=== PATIENT | male | born 2000 | race African-American/Black ===

== ENCOUNTER 2023-11-10 13:59 | Emergency (ER) | payer OTHER ==
[2023-11-10 14:26] VITALS: RESP 18; TEMP 97.4
--- NOTE | 2023-11-10 14:28 | ED ---
General Adult HPI - General Chief complaint: Abdominal Pain Stated complaint: Abd pain, blood in stool Time Seen by Provider: 11/10/23 14:10 Source: patient Mode of arrival: ambulatory Limitations: no limitations - History of Present Illness Initial comments: Dictation was produced using scroll kit dictation software. please excuse any grammatical, word or spelling errors. Chief Complaint: 23-year-old male with history of GI bleed presents to the emergency department for bright red blood per rectum History of Present Illness: Patient 23-year-old male presents emergency department for bright red blood per rectum. This morning he had episode of bright red blood in the toilet when he had a bowel movement. Patient states that few years ago he has has had a colonoscopy. States that colonoscopy was normal. He was told that perhaps may be his GI bleed could be secondary to hemorrhoids. Patient denies any rectal pain. Does complain of some very vague lower abdominal cramping. Denies any lightheadedness. Does not take any anticoagulation medications. Patient has no other medical problems. He has an appointment coming up next month for reevaluation for GI bleed. Contemplated calling GI specialist however given that it is a weekend he was not sure what to do. The ROS documented in this emergency department record has been reviewed and confirmed by me. Those systems with pertinent positive or negative responses have been documented in the HPI. All other systems are other negative and/or noncontributory. - Related Data Allergies Allergy/AdvReac Type Severity Reaction Status Date / Time ibuprofen [From Motrin] Allergy Anaphylaxis Verified 11/10/23 14:06 Review of Systems ROS Statement: Those systems with pertinent positive or pertinent negative responses have been documented in the HPI. ROS Other: All systems not noted in ROS Statement are negative. Past Medical History Past Medical History: No Reported History History of Any Multi-Drug Resistant Organisms: None Reported Additional Past Surgical History / Comment(s): colonoscopy. Past Psychological History: Anxiety, Depression Smoking Status: Vaper Past Alcohol Use History: Occasional Past Drug Use History: Marijuana General Exam - General Exam Comments Initial Comments: PHYSICAL EXAM: General Impression: Alert and oriented x3, not in acute distress HEENT: Normocephalic atraumatic, extra-ocular movements intact, pupils equal and reactive to light bilaterally, mucous membranes moist. Cardiovascular: Heart regular rate and rhythm Chest: Able to complete full sentences, no retractions, no tachypnea Abdomen: abdomen soft, non-tender, non-distended, no organomegaly Musculoskeletal: Pulses present and equal in all extremities, no peripheral edema Motor: no focal deficits noted Neurological: CN II-XII grossly intact, no focal motor or sensory deficits noted Skin: Intact with no visualized rashes Psych: Normal affect and mood Rectal exam: No gross blood, no anal abnormalities Limitations: no limitations Course Vital Signs 11/10/23 14:03 Temperature 97.4 F L Pulse Rate 52 L Respiratory 18 Rate Blood Pressure 136/70 O2 Sat by Pulse 98 Oximetry Medical Decision Making - Medical Decision Making Was pt. sent in by a medical professional or institution (, PA, BOWLING PIN SETTERS INSTALLER, urgent care, hospital, or long term...) When possible be specific @ -No Did you speak to anyone other than the patient for history (EMS, parent, family, police, friend...)? What history was obtained from this source @ -No Did you review nursing and triage notes (agree or disagree)? Why? @ -I reviewed and agree with nursing and triage notes Were old charts reviewed (outside hosp., previous admission, EMS record, old EKG, old radiological studies, urgent care reports/EKG's, long term records)? Report findings @ -No old charts were reviewed Differential Diagnosis (chest pain, altered mental status, abdominal pain women, abdominal pain men, vaginal bleeding, musculoskeletal, weakness, fever, dyspnea, syncope, headache, dizziness, GI bleed, back pain, seizure, CVA, palpatations, mental health)? @ -Differential GI Bleed: Esophageal varices, aortoenteric fistula, Gayla-Lugo, gastritis, peptic ulcer disease, diverticulosis, inflammatory bowel disease, hemorrhoids, fissure, colitis, malignancy, Meckels diverticulum, this is not meant to be an all- inclusive list. EKG interpreted by me (3pts min.). @ -None done X-rays interpreted by me (1pt min.). @ -None done CT interpreted by me (1pt min.). @ -None done U/S interpreted by me (1pt. min.). @ -None done What testing was considered but not performed or refused? (CT, X-rays, U/S, labs)? Why? @ -None What meds were considered but not given or refused? Why? @ -None Did you discuss the management of the patient with other professionals (professionals i.e. , PA, BOWLING PIN SETTERS INSTALLER, lab, RT, psych nurse, high school social studies teacher, strategy intern, teacher, chief knowledge officer, major case detective)? Give summary @ -No Was smoking cessation discussed for >3mins.? @ -No Was critical care preformed (if so, how long)? @ -No Were there social determinants of health that impacted care today? How? (Homelessness, low income, unemployed, alcoholism, drug addiction, transportation, low edu. Level, literacy, decrease access to med. care, retirement, rehab)? @ -No Was there de-escalation of care discussed even if they declined (Discuss DNR or withdrawal of care, Hospice)? DNR status @ -No What co-morbidities impacted this encounter? (DM, HTN, Smoking, COPD, CAD, Cancer, CVA, ARF, Chemo, Hep., AIDS, mental health diagnosis, sleep apnea, morbid obesity)? @ -None Was patient admitted / discharged? Hospital course, mention meds given and route, prescriptions, significant lab abnormalities, going to OR and other pert inent info. @ -23-year-old male with history of prior blood per rectum presents to the emergency department for episode of red blood per rectum after having a bowel movement this morning. Patient stable on arrival. His abdomen is soft. He has very minimal tenderness to his lower quadrant. No concern for diverticulitis. He is well-appearing. Rest of physical examination is benign. Labs unre markable. Patient cleared for discharge. Return precautions discussed. Patient agreeable to follow-up with his usual GI specialist. Undiagnosed new problem with uncertain prognosis? @ -No Drug Therapy requiring intensive monitoring for toxicity (Heparin, Nitro, Insulin, Cardizem)? @ -No Were any procedures done? @ -No Diagnosis/symptom? Acute, or Chronic, or Acute on Chronic? Uncomplicated (without systemic symptoms) or Complicated (systemic symptoms)? @ -Bright red blood per rectum Side effects of treatment? @ -No Exacerbation, Progression, or Severe Exacerbation? @ -No Poses a threat to life or bodily function? How? (Chest pain, [place], [place], pneumonia, PE, COPD, DKA, ARF, appy, cholecystitis, CVA, Diverticulitis, Homicidal, Suicidal, threat to staff... and all critical care pts) @ -yes - Lab Data Result diagrams: 11/10/23 14:24 11/10/23 14:24 Lab Results 11/10/23 11/10/23 11/10/23 Range/Units 14:24 14:24 14:24 WBC 6.7 (3.8-10.6) k/uL RBC 5.43 (4.30-5.90) m/uL Hgb 16.5 (13.0-17.5) gm/dL Hct 50.2 (39.0-53.0) % MCV 92.4 (80.0-100.0) fL MCH 30.5 (25.0-35.0) pg MCHC 33.0 (31.0-37.0) g/dL RDW 12.8 (11.5-15.5) % Plt Count 370 (150-450) k/uL MPV 7.9 Neutrophils % 56 % Lymphocytes % 35 % Monocytes % 6 % Eosinophils % 1 % Basophils % 1 % Neutrophils # 3.7 (1.3-7.7) k/uL Lymphocytes # 2.3 (1.0-4.8) k/uL Monocytes # 0.4 (0-1.0) k/uL Eosinophils # 0.1 (0-0.7) k/uL Basophils # 0.0 (0-0.2) k/uL PT (10.0-12.5) sec INR (<1.2) APTT (22.0-30.0) sec Sodium 140 (137-145) mmol/L Potassium 5.1 (3.5-5.1) mmol/L Chloride 109 H (98-107) mmol/L Carbon Dioxide 22 (22-30) mmol/L Anion Gap 9 mmol/L BUN 11 (9-20) mg/dL Creatinine 0.82 (0.66-1.25) mg/dL Est GFR (CKD-EPI)AfAm >90 (>60 ml/min/1.73 sqM) Est GFR (CKD-EPI)NonAf >90 (>60 ml/min/1.73 sqM) Glucose 74 (74-99) mg/dL Calcium 9.5 (8.4-10.2) mg/dL Total Bilirubin 1.4 H (0.2-1.3) mg/dL AST 61 H (17-59) U/L ALT 31 (4-49) U/L Alkaline Phosphatase 57 (38-126) U/L Total Protein 8.5 H (6.3-8.2) g/dL Albumin 5.2 H (3.5-5.0) g/dL Blood Type A Positive Blood Type Confirm Blood Type Recheck No Previous Record Bld Type Recheck Status CABO Indicated Spec Expiration Date 11/13/2023 - 232311/10/23 11/10/23 Range/Units 14:24 14:45 WBC (3.8-10.6) k/uL RBC (4.30-5.90) m/uL Hgb (13.0-17.5) gm/dL Hct (39.0-53.0) % MCV (80.0-100.0) fL MCH (25.0-35.0) pg MCHC (31.0-37.0) g/dL RDW (11.5-15.5) % Plt Count (150-450) k/uL MPV Neutrophils % % Lymphocytes % % Monocytes % % Eosinophils % % Basophils % % Neutrophils # (1.3-7.7) k/uL Lymphocytes # (1.0-4.8) k/uL Monocytes # (0-1.0) k/uL Eosinophils # (0-0.7) k/uL Basophils # (0-0.2) k/uL PT 11.8 (10.0-12.5) sec INR 1.1 (<1.2) APTT 28.5 (22.0-30.0) sec Sodium (137-145) mmol/L Potassium (3.5-5.1) mmol/L Chloride (98-107) mmol/L Carbon Dioxide (22-30) mmol/L Anion Gap mmol/L BUN (9-20) mg/dL Creatinine (0.66-1.25) mg/dL Est GFR (CKD-EPI)AfAm (>60 ml/min/1.73 sqM) Est GFR (CKD-EPI)NonAf (>60 ml/min/1.73 sqM) Glucose (74-99) mg/dL Calcium (8.4-10.2) mg/dL Total Bilirubin (0.2-1.3) mg/dL AST (17-59) U/L ALT (4-49) U/L Alkaline Phosphatase (38-126) U/L Total Protein (6.3-8.2) g/dL Albumin (3.5-5.0) g/dL Blood Type Blood Type Confirm A Positive Blood Type Recheck Bld Type Recheck Status Spec Expiration Date Disposition Clinical Impression: BRBPR (bright red blood per rectum) Disposition: HOME SELF-CARE Condition: Good Instructions (If sedation given, give patient instructions): Gastrointestinal Bleeding (ED) Is patient prescribed a controlled substance at d/c from ED?: No Referrals: Nonstaff,Physician [Primary Care Provider] - 1-2 days Time of Disposition: 15:48
[2023-11-10 15:12] LABS: Basophils % (A) 1 %; Eosinophils # (A) 0.1 k/uL (0-0.7); Eosinophils % (A) 1 %; HCT 50.2 % (39.0-53.0); HGB 16.5 gm/dL (13.0-17.5); Lymphocytes # (A) 2.3 k/uL (1.0-4.8); Lymphocytes % (A) 35 %; MCH 30.5 pg (25.0-35.0); MCV 92.4 fL (80.0-100.0); Mean Platelet Volume 7.9; Monocytes # (A) 0.4 k/uL (0-1.0); Monocytes % (A) 6 %; Neutrophils # (A) 3.7 k/uL (1.3-7.7); Neutrophils % (A) 56 %; Platelet Count 370 k/uL (150-450); RBC 5.43 m/uL (4.30-5.90); RDW 12.8 % (11.5-15.5); WBC 6.7 k/uL (3.8-10.6)
[2023-11-10 15:40] LABS: ALT 31 U/L (4-49); AST 61 U/L (17-59); African American GFR (CKD) >90 (>60 ml/min/1.73 sqM); Albumin 5.2 g/dL (3.5-5.0); Alkaline Phosphatase 57 U/L (38-126); Anion Gap 9 mmol/L; Blood Urea Nitrogen 11 mg/dL (9-20); Calcium 9.5 mg/dL (8.4-10.2); Carbon Dioxide 22 mmol/L (22-30); Chloride 109 mmol/L (98-107); Glucose 74 mg/dL (74-99); Non-African American GFR(CKD) >90 (>60 ml/min/1.73 sqM); Sodium 140 mmol/L (137-145); Total Bilirubin 1.4 mg/dL (0.2-1.3); Total Protein 8.5 g/dL (6.3-8.2)
[2023-11-10 15:42] LABS: INR 1.1 (<1.2); Partial Thromboplastin Time 28.5 sec (22.0-30.0); Prothrombin Time 11.8 sec (10.0-12.5)
[2023-11-10 15:44] LABS: Potassium 5.1 mmol/L (3.5-5.1)
[2023-11-10 16:20] VITALS: BP 128/67; PULSE 78
== END 2023-11-10 15:58 | disposition home or self-care (01) ==
LOC: EC 13:59
DX: K62.5 Hemorrhage of anus and rectum (principal); F12.90 Cannabis use, unspecified, uncomplicated; F17.200 Nicotine dependence, unspecified, uncomplicated; Z88.6 Allergy status to analgesic agent
CPT/HCPCS: 36415; 80053; 85025; 85610; 85730; 86850; 86900; 86901; 99284

== ENCOUNTER 2024-01-24 09:02 | Emergency (ER) | payer OTHER ==
[2024-01-24 09:08] VITALS: RESP 16; TEMP 98
--- NOTE | 2024-01-24 09:43 | ED ---
General Adult HPI - General Chief complaint: Eye Problems Stated complaint: Eye Problem Time Seen by Provider: 01/24/24 09:16 Source: patient Mode of arrival: ambulatory Limitations: no limitations - History of Present Illness Initial comments: Dictation was produced using [employer] dictation software. please excuse any grammatical, word or spelling errors. 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 He had some chemicals that excellently got into his eye yesterday approximately 24 hours ago. Patient did not think much of it. He went to bed last night feeling fine. Woke up this morning noticed that his eyes were really red. He went to work and told his boss and he was told to come to the emergency department. Patient presents with [employer] data sheet for the chemical. Chemicals called [address]. Patient denies some eye irritation, some vision blurring. Denies any eye pain. Patient was wearing eye protection. The ROS documented in this emergency department record has been reviewed and confirmed by me. Those systems with pertinent positive or negative responses have been documented in the HPI. All other systems are other negative and/or noncontributory. - Related Data Allergies Allergy/AdvReac Type Severity Reaction Status Date / Time ibuprofen [From Motrin] Allergy Anaphylaxis Verified 01/24/24 09:06 Review of Systems ROS Statement: Those systems with pertinent positive or pertinent negative responses have been documented in the HPI. ROS Other: All systems not noted in ROS Statement are negative. Past Medical History Past Medical History: No Reported History History of Any Multi-Drug Resistant Organisms: None Reported Additional Past Surgical History / Comment(s): colonoscopy. Past Psychological History: Anxiety, Depression Smoking Status: Vaper Past Alcohol Use History: Occasional Past Drug Use History: Marijuana General Exam - General Exam Comments Initial Comments: General: Well-appearing, nontoxic, no acute distress. Head: Normocephalic, atraumatic Eyes: PERRLA, EOMI, bilateral conjunctivitis, pH of the eye is 7, corneas clear ENT: Airway patent Chest: Nonlabored breathing Skin: No visual rash, normal skin tone Neuro: Alert and oriented 3 Musculoskeletal: No gross abnormalities Limitations: no limitations Course Vital Signs 01/24/24 09:04 Temperature 98 F Pulse Rate 53 L Respiratory 16 Rate Blood Pressure 115/71 O2 Sat by Pulse 100 Oximetry - Reevaluation(s) Reevaluation #1: 01/24/24 09:43 Case was discussed in detail with poison control. They recommend flushing the eye for 30 minutes and reevaluate his symptoms. Reevaluation #2: 01/24/24 11:24 Fluorescein eye testing is negative. Patient I had been irrigated with Joe lens. Patient's symptoms improved. Medical Decision Making - Medical Decision Making Was pt. sent in by a medical professional or institution (BRIANNA Antony, SYSTEM ENGINEER, urgent care, hospital, or jail...) When possible be specific @ -No Did you speak to anyone other than the patient for history (EMS, parent, family, police, friend...)? What history was obtained from this source @ -No Did you review nursing and triage notes (agree or disagree)? Why? @ -I reviewed and agree with nursing and triage notes Were old charts reviewed (outside hosp., previous admission, EMS record, old EKG, old radiological studies, urgent care reports/EKG's, jail records)? Report findings @ -No old charts were reviewed Differential Diagnosis (chest pain, altered mental status, abdominal pain women, abdominal pain men, vaginal bleeding, musculoskeletal, weakness, fever, dyspnea, syncope, headache, dizziness, GI bleed, back pain, seizure, CVA, palpatations, mental health)? @ -Not applicable EKG interpreted by me (3pts min.). @ -None done X-rays interpreted by me (1pt min.). @ -None done CT interpreted by me (1pt min.). @ -None done U/S interpreted by me (1pt. min.). @ -None done What testing was considered but not performed or refused? (CT, X-rays, U/S, labs)? Why? @ -None What meds were considered but not given or refused? Why? @ -None Did you discuss the management of the patient with other professionals (professionals i.e. BRIANNA Antony, SYSTEM ENGINEER, lab, RT, psych nurse, social scientist, ad operations intern, teacher, credit control officer, social work case manager)? Give summary @ -See above Was smoking cessation discussed for >3mins.? @ -No Was critical care preformed (if so, how long)? @ -No Were there social determinants of health that impacted care today? How? (Homelessness, low income, unemployed, alcoholism, drug addiction, transportation, low edu. Level, literacy, decrease access to med. care, half-way, rehab)? @ -No Was there de-escalation of care discussed even if they declined (Discuss DNR or withdrawal of care, Hospice)? DNR status @ -No What co-morbidities impacted this encounter? (DM, HTN, Smoking, COPD, CAD, Cancer, CVA, ARF, Chemo, Hep., AIDS, mental health diagnosis, sleep apnea, morbid obesity)? @ -None Was patient admitted / discharged? Hospital course, mention meds given and route, prescriptions, significant lab abnormalities, going to OR and other pertinent info. @ -23-year-old male presents emergency department for chemical conjunctivitis. Vital signs upon arrival are within acceptable limits. Eye was irrigated with Joe lens. Fluorescein stain is negative. Ph testing is 7. Given referral to ophthalmology. Undiagnosed new problem with uncertain prognosis? @ -No Drug Therapy requiring intensive monitoring for toxicity (Heparin, Nitro, Insulin, Cardizem)? @ -No Were any procedures done? @ -No Diagnosis/symptom? Acute, or Chronic, or Acute on Chronic? Uncomplicated (without systemic symptoms) or Complicated (systemic symptoms)? @ -Chemical conjunctivitis Side effects of treatment? @ -No Exacerbation, Progression, or Severe Exacerbation? @ -No Poses a threat to life or bodily function? How? (Chest pain, [place], [place], pneumonia, PE, COPD, DKA, ARF, appy, cholecystitis, CVA, Diverticulitis, Homicidal, Suicidal, threat to staff... and all critical care pts) @ -yes Disposition Clinical Impression: Chemical conjunctivitis Disposition: HOME SELF-CARE Condition: Fair Instructions (If sedation given, give patient instructions): [facility] (ED) Additional Instructions: Below is a list of hadoop consultant who have offices nearby. Please call and make an appointment with one of the hadoop consultant for tomorrow morning. It is important you follow-up hadoop consultant within 24 hours Is patient prescribed a controlled substance at d/c from ED?: No Referrals: Moody Mac MD [STAFF PHYSICIAN] - 1-2 days Reanna Green MD [STAFF PHYSICIAN] - 1-2 days Norma Munoz MD [STAFF PHYSICIAN] - 1-2 days Time of Disposition: 11:28
[2024-01-24] MEDS: PROPARACAINE 0.5% OPHTH DROPS 15 ML BTL BOTH EYES STA (09:50)
[2024-01-24] MEDS: FLUORESCEIN STRIPS 1 MG STRIP BOTH EYES ONE (10:37)
[2024-01-24 12:10] VITALS: BP 120/82; PULSE 62
== END 2024-01-24 11:37 | disposition home or self-care (01) ==
LOC: EC 09:02
DX: H10.213 Acute toxic conjunctivitis, bilateral (principal); F17.290 Nicotine dependence, other tobacco product, uncomplicated; F12.90 Cannabis use, unspecified, uncomplicated; Z88.6 Allergy status to analgesic agent
CPT/HCPCS: 99283

== ENCOUNTER 2024-05-19 13:14 | Emergency (ER) | payer OTHER ==
--- NOTE | 2024-05-19 14:10 | ED ---
General Adult HPI - General Chief complaint: Urogenital Stated complaint: hurt genital area Time Seen by Provider: 05/19/24 13:43 Source: patient Mode of arrival: ambulatory Limitations: no limitations - History of Present Illness Initial comments: Dictation was produced using [employer] dictation software. please excuse any grammatical, word or spelling errors. Chief Complaint: 24-year-old male with penile pain History of Present Illness: Patient is a 24-year-old male who was being intimate with his significant other. States that he picked her up and she landed on his penis while it was erect. Patient states that he has pain to his left penis. Occurred approximately 30 minutes prior to arrival. The ROS documented in this emergency department record has been reviewed and confirmed by me. Those systems with pertinent positive or negative responses have been documented in the HPI. All other systems are other negative and/or noncontributory. - Related Data Allergies Allergy/AdvReac Type Severity Reaction Status Date / Time ibuprofen [From Motrin] Allergy Anaphylaxis Verified 01/24/24 09:06 Review of Systems ROS Statement: Those systems with pertinent positive or pertinent negative responses have been documented in the HPI. ROS Other: All systems not noted in ROS Statement are negative. Past Medical History Past Medical History: Asthma History of Any Multi-Drug Resistant Organisms: None Reported Additional Past Surgical History / Comment(s): colonoscopy. Past Psychological History: Anxiety, Depression Smoking Status: Current every day smoker, Vaper Past Alcohol Use History: Occasional Past Drug Use History: Marijuana General Exam - General Exam Comments Initial Comments: PHYSICAL EXAM: General Impression: Alert and oriented x3, not in acute distress HEENT: Normocephalic atraumatic, extra-ocular movements intact, pupils equal and reactive to light bilaterally, mucous membranes moist. Cardiovascular: Heart regular rate and rhythm Chest: Able to complete full sentences, no retractions, no tachypnea Abdomen: abdomen soft, non-tender, non-distended, no organomegaly Musculoskeletal: Pulses present and equal in all extremities, no peripheral edema Motor: no focal deficits noted Neurological: CN II-XII grossly intact, no focal motor or sensory deficits noted Skin: Intact with no visualized rashes Psych: Normal affect and mood exam: No penile ecchymoses, no swelling, no deformity Limitations: no limitations Course Vital Signs 05/19/24 13:23 Temperature 98.4 F Pulse Rate 49 L Respiratory 20 Rate Blood Pressure 128/90 O2 Sat by Pulse 98 Oximetry Medical Decision Making - Medical Decision Making Was pt. sent in by a medical professional or institution (, PA, KITCHEN FOOD ASSEMBLER, urgent care, hospital, or residential...) When possible be specific @ -No Did you speak to anyone other than the patient for history (EMS, parent, family, police, friend...)? What history was obtained from this source @ -No Did you review nursing and triage notes (agree or disagree)? Why? @ -I reviewed and agree with nursing and triage notes Were old charts reviewed (outside hosp., previous admission, EMS record, old EKG, old radiological studies, urgent care reports/EKG's, residential records)? Report findings @ -No old charts were reviewed Differential Diagnosis (chest pain, altered mental status, abdominal pain women, abdominal pain men, vaginal bleeding, musculoskeletal, weakness, fever, dyspnea, syncope, headache, dizziness, GI bleed, back pain, seizure, CVA, palpatations, mental health)? @ -Contusion, strain, penile fracture EKG interpreted by me (3pts min.). @ -None done X-rays interpreted by me (1pt min.). @ -None done CT interpreted by me (1pt min.). @ -None done U/S interpreted by me (1pt. min.). @ -None done What testing was considered but not performed or refused? (CT, X-rays, U/S, labs)? Why? @ -None What meds were considered but not given or refused? Why? @ -None Was smoking cessation discussed for >3mins.? @ -No Were there social determinants of health that impacted care today? How? (Homelessness, low income, unemployed, alcoholism, drug addiction, transportation, low edu. Level, literacy, decrease access to med. care, prison, rehab)? @ -No Was there de-escalation of care discussed even if they declined (Discuss DNR or withdrawal of care, Hospice)? DNR status @ -No What co-morbidities impacted this encounter? (DM, HTN, Smoking, COPD, CAD, Cancer, CVA, ARF, Chemo, Hep., AIDS, mental health diagnosis, sleep apnea, morbid obesity)? @ -None Was patient admitted / discharged? Hospital course, mention meds given and route, prescriptions, significant lab abnormalities, going to OR and other pertinent info. @ -24-year-old male presents to the emergency department concern for penile fracture. Vital signs stable. Physical examination is benign. exam is unremarkable. Case discussed with urology. Unlikely a penile fracture. Patient given outpatient follow-up with urology. Did you discuss the management of the patient with other professionals (professionals i.e. , PA, KITCHEN FOOD ASSEMBLER, lab, RT, psych nurse, social media manager, charge account identification clerk, teacher, marketing and communications officer, classification case manager)? Give summary @ -Case discussed with on-call urology, Dr. Jones who agrees that patient likely did not suffer penile fracture and recommends patient follow-up in the clinic Was critical care preformed (if so, how long)? @ -No Undiagnosed new problem with uncertain prognosis? @ -No Drug Therapy requiring intensive monitoring for toxicity (Heparin, Nitro, Insulin, Cardizem)? @ -No Were any procedures done? @ -No Diagnosis/symptom? Acute, or Chronic, or Acute on Chronic? Uncomplicated (without systemic symptoms) or Complicated (systemic symptoms)? @ -Penile strain Side effects of treatment? @ -No Exacerbation, Progression, or Severe Exacerbation? @ -No Poses a threat to life or bodily function? How? (Chest pain, [place], [place], pneumonia, PE, COPD, DKA, ARF, appy, cholecystitis, CVA, Diverticulitis, Homicidal, Suicidal, threat to staff... and all critical care pts) @ -yes Disposition Clinical Impression: Penile pain Disposition: HOME SELF-CARE Condition: Good Is patient prescribed a controlled substance at d/c from ED?: No Referrals: Kyle Jones MD [STAFF PHYSICIAN] - 1-2 days
[2024-05-19 14:43] VITALS: BP 110/62; PULSE 46; RESP 18; TEMP 98.1
== END 2024-05-19 14:42 | disposition home or self-care (01) ==
LOC: EC 13:14
DX: N48.89 Other specified disorders of penis
CPT/HCPCS: 99284

== ENCOUNTER 2024-12-28 13:57 | Emergency (ER) | payer OTHER ==
--- NOTE | 2024-12-28 14:23 | ED ---
General Adult HPI - General Chief complaint: Chest Pain Stated complaint: chest pain,dizzy Time Seen by Provider: 12/28/24 14:06 Source: patient, RN notes reviewed, old records reviewed Mode of arrival: ambulatory Limitations: no limitations - History of Present Illness Initial comments: 24-year-old male presenting with left-sided chest pain which began after drinking an energy drink. Patient denies prior cardiac history. He states the pain is improved at the time my evaluation. No associated dyspnea. He does state that the pain was worse with movement and deep inspiration. No vomiting. Patient reports marijuana use, no other illicit drugs. No daily medications. No cough or fever. - Related Data Home Medications Medication Instructions Recorded Confirmed No Known Home Medications 12/28/24 12/28/24 Allergies Allergy/AdvReac Type Severity Reaction Status Date / Time ibuprofen [From Motrin] Allergy Anaphylaxis Verified 12/28/24 14:17 Review of Systems ROS Statement: Those systems with pertinent positive or pertinent negative responses have been documented in the HPI. ROS Other: All systems not noted in ROS Statement are negative. Past Medical History Past Medical History: Asthma History of Any Multi-Drug Resistant Organisms: None Reported Additional Past Surgical History / Comment(s): colonoscopy. Past Psychological History: Anxiety, Depression Smoking Status: Current every day smoker, Vaper Past Alcohol Use History: Occasional Past Drug Use History: Marijuana General Exam Limitations: no limitations General appearance: alert, in no apparent distress Head exam: Present: atraumatic, normocephalic Eye exam: Present: normal appearance, PERRL ENT exam: Present: normal exam Neck exam: Present: normal inspection. Absent: tenderness, meningismus Respiratory exam: Present: normal lung sounds bilaterally. Absent: respiratory distress, wheezes Cardiovascular Exam: Present: regular rate, normal rhythm GI/Abdominal exam: Present: soft. Absent: distended, tenderness Extremities exam: Present: normal inspection, normal capillary refill Neurological exam: Present: alert, oriented X3, CN II-XII intact. Absent: motor sensory deficit Psychiatric exam: Present: normal affect, normal mood Skin exam: Present: warm, dry, intact. Absent: cyanosis, diaphoretic Course Vital Signs 12/28/24 13:58 Temperature 98.0 F Pulse Rate 63 Respiratory 15 Rate Blood Pressure 124/73 O2 Sat by Pulse 100 Oximetry - Reevaluation(s) Reevaluation #1: 12/28/24 15:26 Chest pain resolved. Medical Decision Making - Medical Decision Making Was pt. sent in by a medical professional or institution (BRIANNA Antony, [employer], urgent care, hospital, or correction...) When possible be specific @ -No Did you speak to anyone other than the patient for history (EMS, parent, family, police, friend...)? What history was obtained from this source @ -No Did you review nursing and triage notes (agree or disagree)? Why? @ -I reviewed and agree with nursing and triage notes Were old charts reviewed (outside hosp., previous admission, EMS record, old EKG, old radiological studies, urgent care reports/EKG's, correction records)? Report findings @ -No old charts were reviewed Differential Chest Pain: Stable Angina, Unstable Angina, STEMI, NSTEMI Aortic Dissection, Pneumothorax, Musculoskeletal, Esophageal Spasm GERD, Cholecystitis, Pancreatitis, Zoster, this is not meant to be an all-inclusive list. EKG interpreted by me (3pts min.). @ -Sinus bradycardia with LVH, ST segment elevation in V3 no reciprocal change rate of 56, AL interval 212, QRS duration 93, QTc 374 T waves are upright, no old for comparison. X-rays interpreted by me (1pt min.). @ -Chest x-ray negative for acute cardiopulmonary findings. CT interpreted by me (1pt min.). @ -None done U/S interpreted by me (1pt. min.). @ -None done What testing was considered but not performed or refused? (CT, X-rays, U/S, labs)? Why? @ -None What meds were considered but not given or refused? Why? @ -None Did you discuss the management of the patient with other professionals (professionals i.e. BRIANNA Antony, [employer], lab, RT, psych nurse, social services designee, manager chinese, teacher, special officer, case coordinator)? Give summary @ -No Was smoking cessation discussed for >3mins.? @ -No Was critical care preformed (if so, how long)? @ -No Were there social determinants of health that impacted care today? How? (Homelessness, low income, unemployed, alcoholism, drug addiction, transportation, low edu. Level, literacy, decrease access to med. care, skilled nursing, rehab)? @ -No Was there de-escalation of care discussed even if they declined (Discuss DNR or withdrawal of care, Hospice)? DNR status @ -No What co-morbidities impacted this encounter? (DM, HTN, Smoking, COPD, CAD, Cancer, CVA, ARF, Chemo, Hep., AIDS, mental health diagnosis, sleep apnea, morbid obesity)? @ -None Was patient admitted / discharged? Hospital course, mention meds given and route, prescriptions, significant lab abnormalities, going to OR and other pertinent info. @ -[h 24-year-old male presenting with an episode of chest pain after drinking an energy drink. EKG is sinus with signs of LVH. No old for comparison. Chest x-ray is clear. He has a normal CBC, normal CMP, negative D-dimer, negative troponin. Given the abnormal EKG I do recommend this patient follows up with his primary care. He is given return parameters. Stable for discharge. Undiagnosed new problem with uncertain prognosis? @ -No Drug Therapy requiring intensive monitoring for toxicity (Heparin, Nitro, Insulin, Cardizem)? @ -No Were any procedures done? @ -No Diagnosis/symptom? @Atypical chest pain Acute, or Chronic, or Acute on Chronic? @ -Acute Uncomplicated (without systemic symptoms) or Complicated (systemic symptoms)? @ -Default Side effects of treatment? @ -No Exacerbation, Progression, or Severe Exacerbation? @ -No Poses a threat to life or bodily function? How? (Chest pain, [place], [place], pneumonia, PE, COPD, DKA, ARF, appy, cholecystitis, CVA, Diverticulitis, Homicidal, Suicidal, threat to staff... and all critical care pts) @ -Low risk - Lab Data Result diagrams: 12/28/24 14:23 12/28/24 14:47 Lab Results 12/28/24 12/28/24 12/28/24 Range/Units 14:23 14:23 14:47 WBC 9.86 (4.50-10.00) 10*3/uL RBC 5.53 (4.40-5.60) 10*6/uL Hgb 16.7 (13.0-17.0) g/dL Hct 48.4 (39.6-50.0) % MCV 87.5 (80.0-97.0) fL MCH 30.2 (27.0-32.0) pg MCHC 34.5 (32.0-37.0) g/dL Plt Count 295 (140-440) 10*3/uL MPV 9.6 (9.5-12.2) fL Immature Gran % (Auto) 0.2 % Neutrophils % 65.0 % Lymphocytes % 27.8 % Monocytes % 5.7 % Eosinophils % 0.6 % Basophils % 0.7 % Immature Gran # 0.02 (0.00-0.04) 10*3/uL Neutrophils # 6.41 (1.80-7.70) 10*3/uL Lymphocytes # 2.74 (0.90-5.00) 10*3/uL Monocytes # 0.56 (0.20-1.00) 10*3/uL Eosinophils # 0.06 (0.04-0.35) 10*3/uL Basophils # 0.07 (0.00-0.10) 10*3/uL PT 11.9 (10.0-12.5) sec INR 1.1 (<1.2) APTT 26.9 (22.0-30.0) sec D-Dimer <0.17 (<0.60) mg/L FEU Sodium (137-145) mmol/L Potassium (3.5-5.1) mmol/L Chloride (98-107) mmol/L Carbon Dioxide (22-30) mmol/L Anion Gap mmol/L BUN (9-20) mg/dL Creatinine (0.66-1.25) mg/dL Est GFR (CKD-EPI)AfAm (>60 ml/min/1.73 sqM) Est GFR (CKD-EPI)NonAf (>60 ml/min/1.73 sqM) Glucose (74-99) mg/dL Calcium (8.4-10.2) mg/dL Magnesium (1.6-2.3) mg/dL Total Bilirubin (0.2-1.3) mg/dL AST (17-59) U/L ALT (4-49) U/L Alkaline Phosphatase (38-126) U/L Troponin I <0.012 (0.000-0.034) ng/mL Total Protein (6.3-8.2) g/dL Albumin (3.5-5.0) g/dL Lipase (23-300) U/L / Range/Units 14:47 WBC (4.50-10.00) 10*3/uL RBC (4.40-5.60) 10*6/uL Hgb (13.0-17.0) g/dL Hct (39.6-50.0) % MCV (80.0-97.0) fL MCH (27.0-32.0) pg MCHC (32.0-37.0) g/dL Plt Count (140-440) 10*3/uL MPV (9.5-12.2) fL Immature Gran % (Auto) % Neutrophils % % Lymphocytes % % Monocytes % % Eosinophils % % Basophils % % Immature Gran # (0.00-0.04) 10*3/uL Neutrophils # (1.80-7.70) 10*3/uL Lymphocytes # (0.90-5.00) 10*3/uL Monocytes # (0.20-1.00) 10*3/uL Eosinophils # (0.04-0.35) 10*3/uL Basophils # (0.00-0.10) 10*3/uL PT (10.0-12.5) sec INR (<1.2) APTT (22.0-30.0) sec D-Dimer (<0.60) mg/L FEU Sodium 137 (137-145) mmol/L Potassium 3.8 (3.5-5.1) mmol/L Chloride 104 (98-107) mmol/L Carbon Dioxide 26 (22-30) mmol/L Anion Gap 7 mmol/L BUN 9 (9-20) mg/dL Creatinine 0.81 (0.66-1.25) mg/dL Est GFR (CKD-EPI)AfAm >90 (>60 ml/min/1.73 sqM) Est GFR (CKD-EPI)NonAf >90 (>60 ml/min/1.73 sqM) Glucose 92 (74-99) mg/dL Calcium 10.0 (8.4-10.2) mg/dL Magnesium 1.8 (1.6-2.3) mg/dL Total Bilirubin 0.7 (0.2-1.3) mg/dL AST 31 (17-59) U/L ALT 24 (4-49) U/L Alkaline Phosphatase 48 (38-126) U/L Troponin I (0.000-0.034) ng/mL Total Protein 7.5 (6.3-8.2) g/dL Albumin 4.7 (3.5-5.0) g/dL Lipase 65 (23-300) U/L Disposition Clinical Impression: Atypical chest pain Disposition: HOME SELF-CARE Condition: Fair Instructions (If sedation given, give patient instructions): Chest Pain (ED) Additional Instructions: Please follow-up with your primary care provider. Please inform them of abnormal EKG. Is patient prescribed a controlled substance at d/c from ED?: No Referrals: None,Stated [Primary Care Provider] - 1-2 days Ezequiel Dean MD [STAFF PHYSICIAN] - 1-2 days Nirmal Knutson MD [STAFF PHYSICIAN] - 1-2 days Time of Disposition: 15:27
[2024-12-28 14:34] LABS: Basophils # (A) 0.07 10*3/uL (0.00-0.10); Basophils % (A) 0.7 %; Eosinophils # (A) 0.06 10*3/uL (0.04-0.35); Eosinophils % (A) 0.6 %; HCT 48.4 % (39.6-50.0); HGB 16.7 g/dL (13.0-17.0); Lymphocytes # (A) 2.74 10*3/uL (0.90-5.00); Lymphocytes % (A) 27.8 %; MCH 30.2 pg (27.0-32.0); MCHC 34.5 g/dL (32.0-37.0); MCV 87.5 fL (80.0-97.0); Mean Platelet Volume 9.6 fL (9.5-12.2); Monocytes # (A) 0.56 10*3/uL (0.20-1.00); Monocytes % (A) 5.7 %; Neutrophils # (A) 6.41 10*3/uL (1.80-7.70); Platelet Count 295 10*3/uL (140-440); RBC 5.53 10*6/uL (4.40-5.60); WBC 9.86 10*3/uL (4.50-10.00)
--- NOTE | 2024-12-28 14:45 | XR ---
EXAMINATION TYPE: XR chest 2V DATE OF EXAM: 12/28/2024 2:41 PM COMPARISON: None. CLINICAL INDICATION: Male, 24 years old with history of Chest Pain; [facility] TECHNIQUE: XR chest 2V Frontal and lateral views of the chest. FINDINGS: Lungs/Pleura: There is no evidence of pleural effusion, focal consolidation, or pneumothorax. Pulmonary vascularity: Unremarkable. Heart/mediastinum: Cardiomediastinal silhouette is unremarkable. Musculoskeletal: No acute osseous pathology. Other findings: None IMPRESSION: No acute cardiopulmonary disease/process. [facility], , 12/28/2024 2:43 PM
[2024-12-28 14:53] LABS: INR 1.1 (<1.2); Partial Thromboplastin Time 26.9 sec (22.0-30.0); Prothrombin Time 11.9 sec (10.0-12.5)
[2024-12-28 15:07] LABS: ALT 24 U/L (4-49); AST 31 U/L (17-59); African American GFR (CKD) >90 (>60 ml/min/1.73 sqM); Albumin 4.7 g/dL (3.5-5.0); Alkaline Phosphatase 48 U/L (38-126); Anion Gap 7 mmol/L; Blood Urea Nitrogen 9 mg/dL (9-20); Carbon Dioxide 26 mmol/L (22-30); Chloride 104 mmol/L (98-107); Glucose 92 mg/dL (74-99); Lipase 65 U/L (23-300); Magnesium 1.8 mg/dL (1.6-2.3); Non-African American GFR(CKD) >90 (>60 ml/min/1.73 sqM); Potassium 3.8 mmol/L (3.5-5.1); Sodium 137 mmol/L (137-145); Total Bilirubin 0.7 mg/dL (0.2-1.3); Total Protein 7.5 g/dL (6.3-8.2)
[2024-12-28 15:37] VITALS: BP 119/68; PULSE 59; RESP 16; TEMP 97.7
== END 2024-12-28 15:37 | disposition home or self-care (01) ==
LOC: EC 13:57
DX: R07.89 Other chest pain (principal); F12.90 Cannabis use, unspecified, uncomplicated; F17.290 Nicotine dependence, other tobacco product, uncomplicated; Z88.6 Allergy status to analgesic agent
CPT/HCPCS: 36415; 71046; 80053; 83690; 83735; 84484; 85025; 85379; 85610; 85730; 93005; 99284

== ENCOUNTER 2025-01-17 09:02 | Observation (INO) | payer OTHER ==
--- NOTE | 2025-01-17 09:42 | ED ---
General Adult HPI - General Chief complaint: Recheck/Abnormal Lab/Rx Stated complaint: heart racing,chest pain Time Seen by Provider: 01/17/25 09:05 Source: patient, RN notes reviewed, old records reviewed Mode of arrival: ambulatory Limitations: no limitations - History of Present Illness Initial comments: This is a 24-year-old male who presents to the emergency department complaining of sharp chest pain and now he feels like his chest is tight. Patient states this happened to about a month ago when he was evaluated in the emergency department and they were unable to find any issues and he was sent home. Patient states has been feeling fine last night gotten argument with his girlfriend and then he smoked marijuana and after that is when he had the chest pain and chest tightness. Patient denies any fever chills or cough. Patient denies any abdominal pain patient has nausea vomiting diarrhea. Patient states he does have a history of anxiety. Patient states this could be his anxiety - Related Data Home Medications Medication Instructions Recorded Confirmed No Known Home Medications 12/28/24 01/17/25 Allergies Allergy/AdvReac Type Severity Reaction Status Date / Time ibuprofen [From Motrin] Allergy Anaphylaxis Verified 01/17/25 14:30 Review of Systems ROS Statement: Those systems with pertinent positive or pertinent negative responses have been documented in the HPI. ROS Other: All systems not noted in ROS Statement are negative. Past Medical History Past Medical History: Asthma History of Any Multi-Drug Resistant Organisms: None Reported Additional Past Surgical History / Comment(s): colonoscopy. Past Psychological History: Anxiety, Depression Smoking Status: Current every day smoker, Vaper Past Alcohol Use History: Occasional Past Drug Use History: Marijuana General Exam - General Exam Comments Initial Comments: GENERAL: Patient is well-developed and well-nourished. Patient is nontoxic and well- hydrated and is in mild distress. ENT: Neck is soft and supple. No significant lymphadenopathy is noted. Oropharynx i s clear. Moist mucous membranes. Neck has full range of motion without eliciting any pain. EYES: The sclera were anicteric and conjunctiva were pink and moist. Extraocular movements were intact and pupils were equal round and reactive to light. Eyelids were unremarkable. PULMONARY: Unlabored respirations. Good breath sounds bilaterally. No audible rales rhonchi or wheezing was noted. CARDIOVASCULAR: Patient is bradycardic at about 50 beats a minute ABDOMEN: Soft and nontender with normal bowel sounds. SKIN: Skin is clear with no lesions or rashes and otherwise unremarkable. NEUROLOGIC: Patient is alert and oriented x3. Cranial nerves II through XII are grossly intact. Motor and sensory are also intact. Normal speech, volume and content. Symmetrical smile. MUSCULOSKELETAL: Normal extremities with adequate strength and full range of motion. No lower extremity swelling or edema. No calf tenderness. LYMPHATICS: No significant lymphadenopathy is noted PSYCHIATRIC: Mildly anxious Limitations: no limitations Course Vital Signs 01/17/25 01/17/25 01/17/25 09:04 09:57 10:07 Temperature 97.5 F L Pulse Rate 55 L Pulse Rate [ Left] Respiratory 18 18 Rate Blood Pressure 145/83 Blood Pressure [Left Arm] Blood Pressure 119/81 [Right Arm Sitting] Blood Pressure 118/83 [Right Arm Standing] Blood Pressure 121/71 [Right Arm Supine] O2 Sat by Pulse 100 100 58 L Oximetry 01/17/25 01/17/25 01/17/25 11:17 12:27 14:13 Temperature 98.2 F 98.1 F Pulse Rate 56 L 45 L Pulse Rate [ 52 L Left] Respiratory 16 18 Rate Blood Pressure 117/76 Blood Pressure 126/72 [Left Arm] Blood Pressure [Right Arm Sitting] Blood Pressure [Right Arm Standing] Blood Pressure [Right Arm Supine] O2 Sat by Pulse 100 99 Oximetry 01/17/25 15:50 Temperature 97.2 F L Pulse Rate 53 L Pulse Rate [ Left] Respiratory 18 Rate Blood Pressure 120/83 Blood Pressure [Left Arm] Blood Pressure [Right Arm Sitting] Blood Pressure [Right Arm Standing] Blood Pressure [Right Arm Supine] O2 Sat by Pulse 100 Oximetry Medical Decision Making - Medical Decision Making EKG is interpreted by myself. EKG shows sinus bradycardia 44 bpm NC was under 85 QRS is 90 QT interval is 456 QTc is 408. Patient's EKG shows no ST segment elevation or depression. Was pt. sent in by a medical professional or institution (, PA, [employer], urgent care, hospital, or usp...) When possible be specific @ -No Did you speak to anyone other than the patient for history (EMS, parent, family, police, friend...)? What history was obtained from this source @ -No Did you review nursing and triage notes (agree or disagree)? Why? @ -I reviewed and agree with nursing and triage notes Were old charts reviewed (outside hosp., previous admission, EMS record, old EKG, old radiological studies, urgent care reports/EKG's, usp records)? Report findings @ -No old charts were reviewed Differential Diagnosis? @ -Differential Abdominal Pain Women: Differential Chest Pain: Stable Angina, Unstable Angina, STEMI, NSTEMI Aortic Dissection, Pneumothorax, Musculoskeletal, Esophageal Spasm GERD, Cholecystitis, Pancreatitis, Zoster, this is not meant to be an all-inclusive list. EKG interpreted by me (3pts min.). @ -As above X-rays interpreted by me (1pt min.). @ -Chest x-ray shows no acute abnormality CT interpreted by me (1pt min.). @ -None done U/S interpreted by me (1pt. min.). @ -None done What testing was considered but not performed or refused? (CT, X-rays, U/S, labs)? Why? @ -None What meds were considered but not given or refused? Why? @ -None Did you discuss the management of the patient with other professionals (professionals i.e. , PA, [employer], lab, RT, psych nurse, social worker school, fabrication department supervisor, teacher, community resource officer, case picker)? Give summary @ -I spoke with Dr. Simpson soon as I left the room he was standing right outside the room and he excepted the admission. As was Dr. Jolly I spoke with him outside the room and he immediately went into the room to discuss the patient's care as a consult. Was smoking cessation discussed for >3mins.? @ -No Was critical care preformed (if so, how long)? @ -No Were there social determinants of health that impacted care today? How? (Homelessness, low income, unemployed, alcoholism, drug addiction, transportatio n, low edu. Level, literacy, decrease access to med. care, [facility], rehab)? @ -No Was there de-escalation of care discussed even if they declined (Discuss DNR or withdrawal of care, Hospice)? DNR status @ -No What co-morbidities impacted this encounter? (DM, HTN, Smoking, COPD, CAD, Cancer, CVA, ARF, Chemo, Hep., AIDS, mental health diagnosis, sleep apnea, morbid obesity)? @ -None Was patient admitted / discharged? Hospital course, mention meds given and route, prescriptions, significant lab abnormalities, going to OR and other pertinent info. @ -Patient is in no distress. Patient's lab work showed no acute abnormality patient's chest x-ray showed no acute abnormality. After I went back in to reevaluate the patient he indicated to me that he was so dizzy he almost passed out yesterday and again this morning. Patient had not indicated that to myself or the triage nurse or the nurse taking care of him but he now is stating that definitely is what happened. Undiagnosed new problem with uncertain prognosis? @ -No Drug Therapy requiring intensive monitoring for toxicity (Heparin, Nitro, I nsulin, Cardizem)? @ -No Were any procedures done? @ -No Diagnosis/symptom? @ -Atypical chest pain Acute, or Chronic, or Acute on Chronic? @ -Acute Uncomplicated (without systemic symptoms) or Complicated (systemic symptoms)? @ -Uncomplicated Side effects of treatment? @ -No Exacerbation, Progression, or Severe Exacerbation? @ -No Poses a threat to life or bodily function? How? (Chest pain, [place], [place], pneumonia, PE, COPD, DKA, ARF, appy, cholecystitis, CVA, Diverticulitis, Homicidal, Suicidal, threat to staff... and all critical care pts) @ -No Diagnosis/symptom? @ -Bradycardia Acute, or Chronic, or Acute on Chronic? @ -Acute Uncomplicated (without systemic symptoms) or Complicated (systemic symptoms)? @ -Complicated Side effects of treatment? @ -[none] Exacerbation, Progression, or Severe Exacerbation] @ -[no] Poses a threat to life or bodily function? @ -[no] Diagnosis/symptom? @ -Near syncope Acute, or Chronic, or Acute on Chronic? @ -Acute Uncomplicated (without systemic symptoms) or Complicated (systemic symptoms)? @ -Complicated Side effects of treatment? @ -[none] Exacerbation, Progression, or Severe Exacerbation] @ -[no] Poses a threat to life or bodily function? @ -[no] - Lab Data Result diagrams: 01/18/25 05:07 01/20/25 04:08 Lab Results 01/17/25 01/17/25 01/17/25 Range/Units 09:53 09:53 09:53 WBC 3.98 L (4.50-10.00) 10*3/uL RBC 5.49 (4.40-5.60) 10*6/uL Hgb 16.8 (13.0-17.0) g/dL Hct 46.8 (39.6-50.0) % MCV 85.2 (80.0-97.0) fL MCH 30.6 (27.0-32.0) pg MCHC 35.9 (32.0-37.0) g/dL Plt Count 286 (140-440) 10*3/uL MPV 9.6 (9.5-12.2) fL Immature Gran % (Auto) 0 % Neutrophils % 44.6 % Lymphocytes % 43.5 % Monocytes % 9.3 % Eosinophils % 1.8 % Basophils % 0.8 % Immature Gran # 0.00 (0.00-0.04) 10*3/uL Neutrophils # 1.78 L (1.80-7.70) 10*3/uL Lymphocytes # 1.73 (0.90-5.00) 10*3/uL Monocytes # 0.37 (0.20-1.00) 10*3/uL Eosinophils # 0.07 (0.04-0.35) 10*3/uL Basophils # 0.03 (0.00-0.10) 10*3/uL Sodium 139 (137-145) mmol/L Potassium 4.0 (3.5-5.1) mmol/L Chloride 107 (98-107) mmol/L Carbon Dioxide 23 (22-30) mmol/L Anion Gap 9 mmol/L BUN 9 (9-20) mg/dL Creatinine 0.85 (0.66-1.25) mg/dL Est GFR (CKD-EPI)AfAm >90 (>60 ml/min/1.73 sqM) Est GFR (CKD-EPI)NonAf >90 (>60 ml/min/1.73 sqM) Glucose 86 (74-99) mg/dL Calcium 9.6 (8.4-10.2) mg/dL Total Bilirubin 1.8 H (0.2-1.3) mg/dL AST 34 (17-59) U/L ALT 25 (4-49) U/L Alkaline Phosphatase 49 (38-126) U/L Troponin I (0.000-0.034) ng/mL Total Protein 7.4 (6.3-8.2) g/dL Albumin 4.5 (3.5-5.0) g/dL Triglycerides (0.00-149.00) mg/dL Cholesterol (0.00-200.00) mg/dL LDL Cholesterol, Calc (0.0-131.0) mg/dL VLDL Cholesterol, Calc (5.00-40.00) mg/dL HDL Cholesterol (40.00-60.00) mg/dL Cholesterol/HDL Ratio Ratio Urine Opiates Screen Not Detected (NotDetected) Ur Oxycodone Screen Not Detected (NotDetected) Urine Methadone Screen Not Detected (NotDetected) Ur Barbiturates Screen Not Detected (NotDetected) U Tricyclic Antidepress Not Detected (NotDetected) Ur Phencyclidine Scrn Not Detected (NotDetected) Ur Amphetamines Screen Not Detected (NotDetected) U Methamphetamines Scrn Not Detected (NotDetected) U Benzodiazepines Scrn Not Detected (NotDetected) Urine Cocaine Screen Not Detected (NotDetected) U Marijuana (THC) Screen Detected H (NotDetected) 01/17/25 01/17/25 Range/Units 09:53 09:53 WBC (4.50-10.00) 10*3/uL RBC (4.40-5.60) 10*6/uL Hgb (13.0-17.0) g/dL Hct (39.6-50.0) % MCV (80.0-97.0) fL MCH (27.0-32.0) pg MCHC (32.0-37.0) g/dL Plt Count (140-440) 10*3/uL MPV (9.5-12.2) fL Immature Gran % (Auto) % Neutrophils % % Lymphocytes % % Monocytes % % Eosinophils % % Basophils % % Immature Gran # (0.00-0.04) 10*3/uL Neutrophils # (1.80-7.70) 10*3/uL Lymphocytes # (0.90-5.00) 10*3/uL Monocytes # (0.20-1.00) 10*3/uL Eosinophils # (0.04-0.35) 10*3/uL Basophils # (0.00-0.10) 10*3/uL Sodium (137-145) mmol/L Potassium (3.5-5.1) mmol/L Chloride (98-107) mmol/L Carbon Dioxide (22-30) mmol/L Anion Gap mmol/L BUN (9-20) mg/dL Creatinine (0.66-1.25) mg/dL Est GFR (CKD-EPI)AfAm (>60 ml/min/1.73 sqM) Est GFR (CKD-EPI)NonAf (>60 ml/min/1.73 sqM) Glucose (74-99) mg/dL Calcium (8.4-10.2) mg/dL Total Bilirubin (0.2-1.3) mg/dL AST (17-59) U/L ALT (4-49) U/L Alkaline Phosphatase (38-126) U/L Troponin I 0.014 (0.000-0.034) ng/mL Total Protein (6.3-8.2) g/dL Albumin (3.5-5.0) g/dL Triglycerides 48.20 (0.00-149.00) mg/dL Cholesterol 145.00 (0.00-200.00) mg/dL LDL Cholesterol, Calc 74.8 (0.0-131.0) mg/dL VLDL Cholesterol, Calc 9.64 (5.00-40.00) mg/dL HDL Cholesterol 60.60 H (40.00-60.00) mg/dL Cholesterol/HDL Ratio 2.39 Ratio Urine Opiates Screen (NotDetected) Ur Oxycodone Screen (NotDetected) Urine Methadone Screen (NotDetected) Ur Barbiturates Screen (NotDetected) U Tricyclic Antidepress (NotDetected) Ur Phencyclidine Scrn (NotDetected) Ur Amphetamines Screen (NotDetected) U Methamphetamines Scrn (NotDetected) U Benzodiazepines Scrn (NotDetected) Urine Cocaine Screen (NotDetected) U Marijuana (THC) Screen (NotDetected) Disposition Clinical Impression: Atypical chest pain, Bradycardia, Near syncope Disposition: ADMITTED IP TO THIS [facility] Condition: Good Is patient prescribed a controlled substance at d/c from ED?: No Time of Disposition: 11:08
[2025-01-17 10:01] LABS: Basophils # (A) 0.03 10*3/uL (0.00-0.10); Basophils % (A) 0.8 %; Eosinophils # (A) 0.07 10*3/uL (0.04-0.35); Eosinophils % (A) 1.8 %; HCT 46.8 % (39.6-50.0); HGB 16.8 g/dL (13.0-17.0); Lymphocytes # (A) 1.73 10*3/uL (0.90-5.00); Lymphocytes % (A) 43.5 %; MCH 30.6 pg (27.0-32.0); MCHC 35.9 g/dL (32.0-37.0); MCV 85.2 fL (80.0-97.0); Mean Platelet Volume 9.6 fL (9.5-12.2); Monocytes # (A) 0.37 10*3/uL (0.20-1.00); Monocytes % (A) 9.3 %; Neutrophils # (A) 1.78 10*3/uL (1.80-7.70); Neutrophils % (A) 44.6 %; Platelet Count 286 10*3/uL (140-440); RBC 5.49 10*6/uL (4.40-5.60); RDW 12.5 % (11.5-14.5); WBC 3.98 10*3/uL (4.50-10.00)
--- NOTE | 2025-01-17 10:09 | XR ---
EXAMINATION TYPE: XR chest 2V DATE OF EXAM: 01/17/2025 CLINICAL INDICATION: Male, 24 years old with history of Difficulty breathing , TECHNIQUE: Frontal and lateral views of the chest are obtained. COMPARISON: Chest x-ray December 28, 2024 FINDINGS: There is no focal air space opacity, pleural effusion, or pneumothorax seen. The cardiac silhouette size is within normal limits. The osseous structures are intact. IMPRESSION: No acute pulmonary process. [facility], , 01/17/2025 10:07 AM
[2025-01-17 10:16] LABS: ALT 25 U/L (4-49); AST 34 U/L (17-59); African American GFR (CKD) >90 (>60 ml/min/1.73 sqM); Albumin 4.5 g/dL (3.5-5.0); Alkaline Phosphatase 49 U/L (38-126); Anion Gap 9 mmol/L; Blood Urea Nitrogen 9 mg/dL (9-20); Calcium 9.6 mg/dL (8.4-10.2); Carbon Dioxide 23 mmol/L (22-30); Chloride 107 mmol/L (98-107); Glucose 86 mg/dL (74-99); Non-African American GFR(CKD) >90 (>60 ml/min/1.73 sqM); Sodium 139 mmol/L (137-145); Total Bilirubin 1.8 mg/dL (0.2-1.3); Total Protein 7.4 g/dL (6.3-8.2)
[2025-01-17 10:54] LABS: Amphetamine Screen,Urine Not Detected (NotDetected); Barbiturate Screen,Urine Not Detected (NotDetected); Benzodiazepines Screen,Urine Not Detected (NotDetected); Cocaine Screen,Urine Not Detected (NotDetected); Methadone Screen, Urine Not Detected (NotDetected); Opiate Screen,Urine Not Detected (NotDetected); Oxycodone Screen, Urine Not Detected (NotDetected); Phencyclidine Screen,Urine Not Detected (NotDetected); Tricyclic Antidepressant,Urine Not Detected (NotDetected)
[2025-01-17 10:55] LABS: Urn Cannabinoid Scrn Detected (NotDetected)
--- NOTE | 2025-01-17 12:20 | P.CRDCN ---
History of Present Illness History of present illness: HISTORY OF PRESENT ILLNESS: This is a 24-year-old male with a past medical history significant for marijuana use, anxiety, and depression. Patient does not follow with a newsagent. We have been asked to see the patient in consultation for bradycardia. Patient examined at the bedside in the emergency room. Patient initially presented to the hospital with a chief complaint of chest discomfort. Patient states he has been having sharp pains in the middle of his chest. At the time of examination he denies any chest pain or pressure. Patient was found to be bradycardic with his heart rate going down to the 40s at times. He does report feeling lightheaded when this happens. He denies having any syncopal episodes. The patient does report occasional marijuana use. He states that he is trying to stop smoking marijuana. However he does report using marijuana yesterday before his symptoms started. DIAGNOSTICS: - EKG reveals sinus bradycardia with no signs of acute ischemia. - Chest xray negative for acute process. - Laboratory data: WBC 3.98. Hemoglobin 16.8. Platelet count 286. Sodium 139. Potassium 4.0. BUN 9. Creatinine 0.85. - Current home cardiac medications include none. - No previous echocardiogram, stress test, or cardiac catheterization available in EMR for review REVIEW OF SYSTEMS: At the time of my exam: CONSTITUTIONAL: Denies fever or chills. HEENT: Denies blurred vision, vision changes, or eye pain. Denies hemoptysis CARDIOVASCULAR: Denies chest pain. Denies orthopnea. Denies PND. Denies palpitations RESPIRATORY: Denies shortness of breath. GASTROINTESTINAL: Denies abdominal pain. Denies nausea or vomiting. HEMATOLOGIC: Denies bleeding disorders. GENITOURINARY: Denies any blood in urine. SKIN: Denies pruitis. Denies rash. PHYSICAL EXAM: VITAL SIGNS: Reviewed. GENERAL: Well-developed in no acute distress. HEENT: Head is normocephalic. Pupils are equal, round. Sclerae anicteric. Mucous membranes of the mouth are moist. Neck supple. No JVD or thyromegaly LUNGS: Respirations even and unlabored. Lungs essentially clear to auscultation bilaterally. HEART: Regular rate and rhythm. S1 and S2 heard. ABDOMEN: Soft. Nondistended. Nontender. EXTREMITIES: Normal range of motion. No clubbing or cyanosis. Peripheral pulses intact. No lower extremity edema NEUROLOGIC: Awake and alert. Oriented x 3. ASSESSMENT: Chest pain, troponin negative x 1 Sinus bradycardia Presyncope Marijuana use PLAN: Orthostatics obtained and unremarkable Obtain 2D echo to assess cardiac structure and function Trend troponins Check TSH Continue telemetry monitoring Abstinence from marijuana recommended Further recommendations pending patient course Nurse practitioner note has been reviewed by physician. Signing provider agrees with the documented findings, assessment, and plan of care documented by DIRECTOR OF IN SERVICE EDUCATION as a scribe. Past Medical History Past Medical History: Asthma History of Any Multi-Drug Resistant Organisms: None Reported Additional Past Surgical History / Comment(s): colonoscopy. Past Psychological History: Anxiety, Depression Smoking Status: Current every day smoker, Vaper Past Alcohol Use History: Occasional Past Drug Use History: Marijuana Medications and Allergies Home Medications Medication Instructions Recorded Confirmed Type No Known Home Medications 12/28/24 12/28/24 History Allergies Allergy/AdvReac Type Severity Reaction Status Date / Time ibuprofen [From Motrin] Allergy Anaphylaxis Verified 01/17/25 09:08 Physical Exam Vitals: Vital Signs Temp Pulse Resp BP BP BP BP 01/17/25 11:17 56 L 01/17/25 10:07 01/17/25 09:57 18 119/81 118/83 121/71 01/17/25 09:04 97.5 F L 55 L 18 145/83 Pulse Ox 01/17/25 11:17 01/17/25 10:07 58 L 01/17/25 09:57 100 01/17/25 09:04 100 Intake and Output 01/16/25 01/17/25 01/17/25 22:59 06:59 14:59 Other: Weight 65.771 kg Results 01/17/25 09:53 01/17/25 09:53 Cardiac Enzymes 01/17/25 01/17/25 Range/Units 09:53 09:53 AST 34 (17-59) U/L Troponin I 0.014 (0.000-0.034) ng/mL CBC 01/17/25 Range/Units 09:53 WBC 3.98 L (4.50-10.00) 10*3/uL RBC 5.49 (4.40-5.60) 10*6/uL Hgb 16.8 (13.0-17.0) g/dL Hct 46.8 (39.6-50.0) % Plt Count 286 (140-440) 10*3/uL Comprehensive Metabolic Panel 01/17/25 Range/Units 09:53 Sodium 139 (137-145) mmol/L Potassium 4.0 (3.5-5.1) mmol/L Chloride 107 (98-107) mmol/L Carbon Dioxide 23 (22-30) mmol/L BUN 9 (9-20) mg/dL Creatinine 0.85 (0.66-1.25) mg/dL Glucose 86 (74-99) mg/dL Calcium 9.6 (8.4-10.2) mg/dL AST 34 (17-59) U/L ALT 25 (4-49) U/L Alkaline Phosphatase 49 (38-126) U/L Total Protein 7.4 (6.3-8.2) g/dL Albumin 4.5 (3.5-5.0) g/dL Current Medications Generic Name Dose Route Start Last Admin Trade Name Freq PRN Reason Stop Dose Admin Nitroglycerin 0.4 mg 01/17/25 11:35 Nitroglycerin Sl Tabs 0.4 Mg Tab SUBLINGUAL Q5M PRN Chest Pain Intake and Output 01/16/25 01/17/25 01/17/25 22:59 06:59 14:59 Other: Weight 65.771 kg Patient Weight 01/18/25 06:59 Weight 65.771 kg 01/17/25 09:53 01/17/25 09:53
[2025-01-17] MEDS: ACETAMINOPHEN TAB 325 MG TAB PO PRN (21:31)
[2025-01-17] MEDS: NITROGLYCERIN SL TABS 0.4 MG TAB SUBLINGUAL PRN (21:32)
--- NOTE | 2025-01-18 01:04 | P.HPIM ---
History of Present Illness This is a pleasant 24 years old male with no past medical history presents because of dizziness Patient states that yesterday he had some sensation in his chest like tightness rather than pain about 6/10 nonradiating with no precipitating or relieving factors Associated with dizziness as if he is about to pass out as he explains. Also he has mild headache like 4/10 in both temples but no shortness of breath or coughing. Patient also complains from shakiness in his left leg that lasted yesterday about 1 to 2 hours, he states he could not control it and he could not stop it. He denies any other GI/ symptom. He denies smoking alcohol but he uses marijuana Hemodynamically stable, heart rate in the 40s. Labs including CBC, BMP, LFT, troponin x 3 unremarkable with tumor less than 0.012. Urine drug screen was positive for marijuana. Chest x-ray is negative for acute process. EKG showing sinus bradycardia at [address] changes Review of Systems Review of systems CONSTITUTIONAL: No fever, no malaise, no fatigue. HEENT: No recent visual problems or hearing problems. Denied any sore throat. CARDIOVASCULAR: No orthopnea, PND, no palpitations, no syncope. PULMONARY: No shortness of breath, no cough, no hemoptysis. GASTROINTESTINAL: No diarrhea, no nausea, no vomiting, no abdominal pain. Normoactive bowel sounds. NEUROLOGICAL: No headaches, no weakness, no numbness. HEMATOLOGICAL: Denies any bleeding or petechiae. GENITOURINARY: Denies any burning micturition, frequency, or urgency. MUSCULOSKELETAL/RHEUMATOLOGICAL: Denies any joint pain, swelling, or any muscle pain. ENDOCRINE: Denies any polyuria or polydipsia. Past Medical History Past Medical History: Asthma, Sleep Apnea/CPAP/BIPAP History of Any Multi-Drug Resistant Organisms: None Reported Additional Past Surgical History / Comment(s): colonoscopy. Past Psychological History: Anxiety, Depression Smoking Status: Current every day smoker, Vaper Past Alcohol Use History: Occasional Past Drug Use History: Marijuana Medications and Allergies Home Medications Medication Instructions Recorded Confirmed Type No Known Home Medications 12/28/24 01/17/25 History Allergies Allergy/AdvReac Type Severity Reaction Status Date / Time ibuprofen [From Motrin] Allergy Anaphylaxis Verified 01/17/25 14:30 Physical Exam Vitals: Vital Signs Temp Pulse Pulse Resp BP BP BP 01/17/25 15:50 97.2 F L 53 L 18 120/83 01/17/25 14:13 98.1 F 45 L 18 117/76 01/17/25 12:27 98.2 F 52 L 16 126/72 01/17/25 11:17 56 L 01/17/25 10:07 01/17/25 09:57 18 119/81 01/17/25 09:04 97.5 F L 55 L 18 145/83 BP BP Pulse Ox 01/17/25 15:50 100 01/17/25 14:13 99 01/17/25 12:27 100 01/17/25 11:17 01/17/25 10:07 58 L 01/17/25 09:57 118/83 121/71 100 01/17/25 09:04 100 Intake and Output 01/17/25 01/17/25 01/17/25 06:59 14:59 22:59 Other: Weight 65.771 kg GENERAL: The patient is alert and oriented x3, not in any acute distress. Well developed, well nourished. HEENT: Pupils are round and equally reacting to light. EOMI. No scleral icterus. No conjunctival pallor. Normocephalic, atraumatic. No pharyngeal erythema. No thyromegaly. CARDIOVASCULAR: S1 and S2 present. No murmurs, rubs, or gallops. PULMONARY: Chest is clear to auscultation, no wheezing , no crackles. ABDOMEN: Soft, nontender, nondistended, normoactive bowel sounds. No palpable organomegaly. MUSCULOSKELETAL: No joint swelling or deformity. EXTREMITIES: No cyanosis, clubbing, or pedal edema. NEUROLOGICAL: Gross neurological examination did not reveal any focal deficits. SKIN: No rashes. no petechiae. Results CBC & Chem 7: 01/17/25 09:53 01/17/25 09:53 Labs: Abnormal Lab Results - Last 24 Hours (Table) 01/17/25 01/17/25 01/17/25 Range/Units 09:53 09:53 09:53 WBC 3.98 L (4.50-10.00) 10*3/uL Neutrophils # 1.78 L (1.80-7.70) 10*3/uL Total Bilirubin 1.8 H (0.2-1.3) mg/dL U Marijuana (THC) Screen Detected H (NotDetected) Thrombosis Risk Factor Assmnt - Choose All That Apply Any of the Below Risk Factors Present?: No Assessment and Plan Assessment: Dizziness Sinus bradycardia Left leg shakiness Substance abuse with marijuana Plan: Continue with close monitoring and telemetry Cardiology consult Nep neurology team consulted given his left leg shakiness Patient was counseled to avoid marijuana. Labs and medication were reviewed.. Continue same treatment. Continue with symptomatic treatment. Resume home medication. Monitor labs and vitals. DVT and GI prophylaxis. Further recommendations as per clinical course of the patient DVT prophylaxis: Subcutaneous heparin GI Prophylaxis: Pepcid Prognosis is guarded
[2025-01-18 07:31] VITALS: RESP 16
--- NOTE | 2025-01-18 07:45 | CA ---
Transthoracic Echo Report Name: Jaz Hills Age: 24 Gender: M : 2000 Exam Date: 01/17/2025 16:33 Exam Location: [facility] Ht (in): 73 Wt (lb): 145 Ordering Physician: Roseann White Attending/Referring Phys: [id number], [place] Superintendent Evelin Chase RDCS Procedure CPT: Indications: LV function, bradycardia, presyncope Cardiac Hx: Technical Quality: Good Contrast 1: Total Dose (mL): Contrast 2: Total Dose (mL): MEASUREMENTS (Male / Female) Normal Values 2D ECHO LV Diastolic Diameter PLAX 4.2 cm 4.2 - 5.9 / 3.9 - 5.3 cm LV Systolic Diameter PLAX 3.0 cm IVS Diastolic Thickness 1.0 cm 0.6 - 1.0 / 0.6 - 0.9 cm LVPW Diastolic Thickness 0.9 cm 0.6 - 1.0 / 0.6 - 0.9 cm LV Relative Wall Thickness 0.5 RV Internal Dim ED PLAX 2.6 cm LA Systolic Diameter LX 2.9 cm 3.0 - 4.0 / 2.7 - 3.8 cm LV Diastolic Volume MOD BP 94.1 cm??? 67 - 155 / 56 - 104 cm??? LV Systolic Volume MOD BP 31.9 cm??? 22 - 58 / 19 - 49 cm??? LV Ejection Fraction MOD BP 66.1 % >= 55 % LV Cardiac Index MOD BP 1565.2 cm???/min???m??? LV Diastolic Volume MOD 4C 85.9 cm??? LV Systolic Volume MOD 4C 30.7 cm??? LV Ejection Fraction MOD 4C 64.2 % LV Cardiac Index MOD 4C 1389.9 cm???/min???m??? LV Diastolic Length 4C 9.4 cm LV Systolic Length 4C 6.8 cm LV Diastolic Volume MOD 2C 102.1 cm??? LV Systolic Volume MOD 2C 29.3 cm??? LV Ejection Fraction MOD 2C 71.3 % LV Cardiac Index MOD 2C 1832.3 cm???/min???m??? LV Diastolic Length 2C 9.6 cm LV Systolic Length 2C 7.7 cm LA Volume 47.7 cm??? 18 - 58 / 22 - 52 cm??? LA Volume Index 26.1 cm???/m??? 16 - 28 cm???/m??? M-MODE Aortic Root Diameter MM 2.8 cm LA Systolic Diameter MM 2.7 cm LA Ao Ratio MM 1.0 AV Cusp Separation MM 1.9 cm DOPPLER MV Area PHT 2.8 cm??? Mitral E Point Velocity 84.0 cm/s Mitral A Point Velocity 49.1 cm/s Mitral E to A Ratio 1.7 MV Deceleration Time 275.3 ms TR Peak Velocity 207.3 cm/s TR Peak Gradient 17.2 mmHg FINDINGS Left Ventricle Left ventricular ejection fraction is estimated at 55-60%. Normal Left ventricular size, wall thickness, systolic function with no obvious regional wall motion abnormalities. Normal Left ventricular diastolic filling pattern. Right Ventricle Normal right ventricular size and function. Right ventricular systolic pressure within normal limits. Right Atrium Normal right atrial size. Left Atrium Normal left atrial size. Mitral Valve Structurally normal mitral valve. Trace mitral regurgitation. No mitral stenosis. Aortic Valve Trileaflet aortic valve. No aortic valve stenosis or regurgitation. Tricuspid Valve Structurally normal tricuspid valve. Mild tricuspid regurgitation. No tricuspid stenosis. Pulmonic Valve Structurally normal pulmonic valve. Trace pulmonic regurgitation. No pulmonic stenosis. Pericardium No pericardial or pleural effusion. Aorta Normal size aortic root and proximal ascending aorta. CONCLUSIONS Normal LV function Previewed by: Dr. Eros Torres MD (Electronically Signed) Final Date: 18 Jan 2025 07:44
[2025-01-18] MEDS ORDERED: ASPIRIN 325 MG TAB PO SCH (09:00)
[2025-01-18 10:07] LABS: Basophils # (A) 0.04 X 10*3/uL (0.00-0.10); Basophils % (A) 0.8 %; Eosinophils % (A) 1.9 %; HCT 48.2 % (39.6-50.0); Immature Grans, Automated 0 %; Lymphocytes # (A) 2.79 X 10*3/uL (0.90-5.00); Lymphocytes % (A) 52.7 %; MCH 29.7 pg (27.0-32.0); MCHC 33.2 g/dL (32.0-37.0); MCV 89.4 FL (80.0-97.0); Mean Platelet Volume 10.3 FL (9.5-12.2); Monocytes # (A) 0.49 X 10*3/uL (0.20-1.00); Monocytes % (A) 9.3 %; NRBC Per 100 WBC 0 X 10*3/uL (0.00-0.01); Neutrophils # (A) 1.87 X 10*3/uL (1.80-7.70); Neutrophils % (A) 35.3 %; Platelet Count 303 X 10*3/uL (140-440); RBC 5.39 X 10*6/uL (4.40-5.60); WBC 5.29 X 10*3/uL (4.50-10.00)
[2025-01-18 11:02] LABS: BUN/Creat Ratio 12.64 Ratio (12.00-20.00); Blood Urea Nitrogen 13.9 mg/dL (9.0-27.0); Calcium 9.3 mg/dL (8.7-10.3); Carbon Dioxide 27.2 mmol/L (21.6-31.8); Chloride 105 mmol/L (96-109); Glucose 85 mg/dL (70-110); Potassium 4.5 mmol/L (3.5-5.5); Sodium 140 mmol/L (135-145)
[2025-01-18 11:03] LABS: Chol/HDL Ratio 2.39 Ratio; LDL Cholesterol,Calculated 74.8 mg/dL (0.0-131.0); VLDL Calculation 9.64 mg/dL (5.00-40.00)
--- NOTE | 2025-01-18 11:36 | P.PN ---
Subjective Progress Note Date: 01/18/25 HISTORY OF PRESENT ILLNESS: This is a 24-year-old male with a past medical history significant for marijuana use, anxiety, and depression. Patient does not follow with a pasta maker. We have been asked to see the patient in consultation for bradycardia. Patient examined at the bedside in the emergency room. Patient initially presented to the hospital with a chief complaint of chest discomfort. Patient states he has been having sharp pains in the middle of his chest. At the time of examination he denies any chest pain or pressure. Patient was found to be bradycardic with his heart rate going down to the 40s at times. He does report feeling lightheaded when this happens. He denies having any syncopal episodes. The patient does report occasional marijuana use. He states that he is trying to stop smoking marijuana. However he does report using marijuana yesterday before his symptoms started. DIAGNOSTICS: - EKG reveals sinus bradycardia with no signs of acute ischemia. - Chest xray negative for acute process. - Laboratory data: WBC 3.98. Hemoglobin 16.8. Platelet count 286. Sodium 139. Potassium 4.0. BUN 9. Creatinine 0.85. - Current home cardiac medications include none. - No previous echocardiogram, stress test, or cardiac catheterization available in EMR for review 01/18 Patient seen and examined on the observation unit. He states he is feeling good today. He has been on telemetry and heart rate went down to 38 but mostly running in the 40s. It is a sinus rhythm with a first-degree block. Blood pressure 127/71, pulse ox 100% on room air. Troponins are negative x 3. TSH 0.512. Echocardiogram reveals EF of 55 to 60%. Results of testing have been reviewed with the patient. PHYSICAL EXAM: VITAL SIGNS: Reviewed. GENERAL: Well-developed in no acute distress. HEENT: Head is normocephalic. Pupils are equal, round. Sclerae anicteric. Mucous membranes of the mouth are moist. Neck supple. No JVD or thyromegaly LUNGS: Respirations even and unlabored. Lungs essentially clear to auscultation bilaterally. HEART: Regular rate and rhythm. S1 and S2 heard. ABDOMEN: Soft. Nondistended. Nontender. EXTREMITIES: Normal range of motion. No clubbing or cyanosis. Peripheral pulses intact. No lower extremity edema NEUROLOGIC: Awake and alert. Oriented x 3. ASSESSMENT: Chest pain, troponin negative x 1 Sinus bradycardia Presyncope Marijuana use PLAN: Orthostatics obtained and unremarkable Abstinence from marijuana recommended Patient is cleared for discharge but will need a 30-day event monitor and exercise stress test as an outpatient. Otherwise, patient will follow-up with Dr. Torres in 6 weeks. Nurse practitioner note has been reviewed by physician. Signing provider agrees with the documented findings, assessment, and plan of care documented by LOSS PREVENTION RESEARCH ENGINEER as a scribe. Objective - Vital Signs Vital signs: Vital Signs Temp 97.8 F 01/18/25 07:00 Pulse 40 L 01/18/25 07:47 Resp 16 01/18/25 07:00 BP 127/71 01/18/25 07:00 Pulse Ox 100 01/18/25 07:00 FiO2 Intake & Output 01/17/25 01/18/25 01/18/25 18:59 06:59 18:59 Weight 65.771 kg Other: # Voids 1 - Labs CBC & Chem 7: 01/18/25 05:07 01/18/25 05:07 Labs: Abnormal Lab Results - Last 24 Hours (Table) 01/17/25 01/17/25 Range/Units 09:53 09:53 Total Bilirubin 1.8 H (0.2-1.3) mg/dL U Marijuana (THC) Screen Detected H (NotDetected)
--- NOTE | 2025-01-18 23:56 | P.PN ---
Subjective This is a pleasant 24 years old male with no past medical history presents because of dizziness Patient states that yesterday he had some sensation in his chest like tightness rather than pain about 6/10 nonradiating with no precipitating or relieving factors Associated with dizziness as if he is about to pass out as he explains. Also he has mild headache like 4/10 in both temples but no shortness of breath or coughing. Patient also complains from shakiness in his left leg that lasted yesterday about 1 to 2 hours, he states he could not control it and he could not stop it. He denies any other GI/ symptom. He denies smoking alcohol but he uses marijuana Hemodynamically stable, heart rate in the 40s. Labs including CBC, BMP, LFT, troponin x 3 unremarkable with tumor less than 0.012. Urine drug screen was positive for marijuana. Chest x-ray is negative for acute process. EKG showing sinus bradycardia at [address] changes / Patient overall doing well with no chest pain or dyspnea No more shakiness or headache or dizziness His heart rate still bradycardic in the 50s dropped to 40s during sleep CBC and BMP today are unremarkable. Troponin were negative. TSH normal at 0.5. Orthostatic negative Echocardiogram pending Patient will require 30-day event monitor Neurology service also following the patient and EEG is pending Objective - Vital Signs Vital signs: Vital Signs Temp 98.4 F 01/18/25 14:51 Pulse 46 L 01/18/25 14:51 Resp 16 01/18/25 14:51 BP 119/71 01/18/25 14:51 Pulse Ox 100 01/18/25 14:51 FiO2 Intake & Output 01/17/25 01/18/25 01/18/25 18:59 06:59 18:59 Weight 65.771 kg Other: # Voids 1 3 - Exam GENERAL: The patient is alert and oriented x3, not in any acute distress. Well developed, well nourished. HEENT: Pupils are round and equally reacting to light. EOMI. No scleral icterus. No conjunctival pallor. Normocephalic, atraumatic. No pharyngeal erythema. No thyromegaly. CARDIOVASCULAR: S1 and S2 present. No murmurs, rubs, or gallops. PULMONARY: Chest is clear to auscultation, no wheezing , no crackles. ABDOMEN: Soft, nontender, nondistended, normoactive bowel sounds. No palpable organomegaly. MUSCULOSKELETAL: No joint swelling or deformity. EXTREMITIES: No cyanosis, clubbing, or pedal edema. NEUROLOGICAL: Gross neurological examination did not reveal any focal deficits. SKIN: No rashes. no petechiae. - Labs CBC & Chem 7: 01/18/25 05:07 01/18/25 05:07 Labs: Abnormal Lab Results - Last 24 Hours (Table) 01/17/25 Range/Units 09:53 HDL Cholesterol 60.60 H (40.00-60.00) mg/dL Assessment and Plan Assessment: Dizziness Sinus bradycardia Left leg shakiness Substance abuse with marijuana Plan: Continue with close monitoring and telemetry Cardiology consult Patient will require event monitor upon discharge neurology team consulted given his left leg shakiness. EEG requested Patient was counseled to avoid marijuana. Labs and medication were reviewed.. Continue same treatment. Continue with symptomatic treatment. Resume home medication. Monitor labs and vitals. DVT and GI prophylaxis. Further recommendations as per clinical course of the patient DVT prophylaxis: Subcutaneous heparin GI Prophylaxis: Pepcid Prognosis is guarded
--- NOTE | 2025-01-19 00:57 | P.CNNES ---
History of Present Illness Consult date: 01/18/25 Requesting physician: Renny E Evelin Reason for Consult: Dizziness and shakiness in the left leg History of Present Illness: Patient is a 24-year-old left-handed male came to the hospital for syncopal spell followed by left leg shakiness. Patient states that on Sunday, 2 days ago, he smoked marijuana. He got home at 11 PM to get food. Patient states that he was standing and he felt dizzy, chest started hurting, and slid on the wall and fell to the ground. He did not pass out. He described dizziness as lightheadedness, no spinning. There was no tongue bite or loss of control of urine. He tried to see if the chest pain will go away. He crawled upstairs to the bed and laid down in the bed. While he was laying in the bed, he noticed his left leg was shaking, which lasted for about 10-15 minutes. At 8 AM he woke up and he was still having chest pain, therefore he decided to come to the ER. Patient denies any problem with balance, numbness or tingling, focal weakness no visual problems speech or facial droop. Vital signs on arrival blood pressure 145/83, pulse rate 55 temperature 97.5. Orthostatics were checked, which were negative including supine blood pressure 121/71, sitting 119/81 and standing 118/83. Temperature is normal. Blood test shows normal CBC, CMP, troponin, TSH and urine drug screen is positive for marijuana. EKG showed sinus bradycardia with heart rate of 44. Chest x-ray showed no acute process. Patient states that he visited ER for chest pain 2 weeks ago and was observed and released. Patient states that he was diagnosed with absence seizures in around 2020. He was seeing Dr. eliana Dailey in [place]. He was treated with Fycompa for about 1-2 years. As he stopped having seizures, he was taken off medication in 2022. Patient states that he vapes 5% codeine. Denies any alcohol or drug use. He smokes marijuana every day, although is trying to quit marijuana. Review of Systems All pertinent positive and negative review of systems mentioned in the HPI. Otherwise unremarkable. Past Medical History Past Medical History: Asthma, Sleep Apnea/CPAP/BIPAP History of Any Multi-Drug Resistant Organisms: None Reported Additional Past Surgical History / Comment(s): colonoscopy. Past Psychological History: Anxiety, Depression Smoking Status: Current every day smoker, Vaper Past Alcohol Use History: Occasional Past Drug Use History: Marijuana Medications and Allergies Home Medications Medication Instructions Recorded Confirmed Type No Known Home Medications 12/28/24 01/17/25 History Allergies Allergy/AdvReac Type Severity Reaction Status Date / Time ibuprofen [From Motrin] Allergy Anaphylaxis Verified 01/17/25 14:30 Physical Examination - Vital Signs Vital Signs: Vital Signs Temp Pulse Pulse Pulse Resp BP BP 01/18/25 07:47 40 L 01/18/25 07:00 97.8 F 45 L 16 01/18/25 01:10 97.6 F 45 L 15 111/64 01/17/25 21:26 49 L 122/70 01/17/25 18:50 98.3 F 48 L 15 01/17/25 15:50 97.2 F L 53 L 18 120/83 01/17/25 14:13 98.1 F 45 L 18 117/76 BP BP Pulse Ox 01/18/25 07:47 01/18/25 07:00 127/71 100 01/18/25 01:10 100 01/17/25 21:26 01/17/25 18:50 120/76 100 01/17/25 15:50 100 01/17/25 14:13 99 Intake and Output 01/17/25 01/18/25 01/18/25 22:59 06:59 14:59 Other: # Voids 1 1 Patient is a young Afro-Welsh male, very pleasant, in no acute distress. Patient is alert awake oriented to time place and person. Speech and language functions are normal. Patient can name and repeat very well. No aphasia or dysarthria. Attention, concentration and fund of knowledge is adequate. On cranial nerve examination, pupils are equal, round and reacting to light, visual lennon are full on confrontation, with no neglect on double simultaneous stimulation. Extraocular muscles are intact with no nystagmus. Face is symmetric, tongue protrudes to the midline. Palatal elevation and sensation normal, hearing and shoulder shrug normal, facial sensation normal. No evidence of tongue bite елена. On muscle strength testing, there is no pronator drift and the strength is normal in arms and legs distally and proximally. Deep tendon reflexes are symmetric 2 in the biceps, 1+ brachioradialis, 2 at the knees, 1 ankles and plantars downgoing. Sensory to touch is equal with no neglect on double simultaneous stimulation. Cerebellar function showed no ataxia for [id number] testing. No dysdiadochokinesia. No ataxia for [id number] testing on either side. Tone and bulk of muscles normal. Gait deferred.. On general examination, there is no carotid bruit or murmur, S1-S2 audible. Chest is clear on consultation. Abdomen is soft nontender. No organomegaly, bowel sounds present. Peripheral pulses are present. No peripheral edema. Results - Laboratory Findings CBC and BMP: 01/18/25 05:07 01/18/25 05:07 Abnormal Lab Findings: Abnormal Labs 01/17/25 01/17/25 01/17/25 09:53 09:53 09:53 WBC 3.98 L Neutrophils # 1.78 L Total Bilirubin 1.8 H HDL Cholesterol U Marijuana (THC) Screen Detected H 01/17/25 09:53 WBC Neutrophils # Total Bilirubin HDL Cholesterol 60.60 H U Marijuana (THC) Screen Assessment and Plan Assessment: * Near syncope, likely vasovagal. * Transient episode of left leg shaking, doubt seizure. This happened shortly after above near syncopal spell * Reported history of possible absence seizures, treated with Fycompa for a couple years, stopped having these spells, therefore discontinued Fycompa 2022. * Marijuana use * Vapes Plan: * Patient's orthostatics are negative. * We will check EEG to rule out any epileptiform activity. * We will not initiate antiepileptic medication, unless EEG is clearly abnormal. * 2-D echo revealed normal LV systolic function with EF 55-60%. No obvious regional wall motion abnormalities. Normal left and right atrial size. No va lvular abnormalities. * Recommended abstain from Vaping and marijuana * Neurologically will be clear, if EEG comes back normal. * Dr. Petar Emerson Will resume neurology service in the morning. * Thank you for the consult.
--- NOTE | 2025-01-19 10:47 | P.PN ---
Subjective This is a 24-year-old male with a past medical history significant for marijuana use, anxiety, and depression. Patient does not follow with a warehouse man. We have been asked to see the patient in consultation for bradycardia. Patient examined at the bedside in the emergency room. Patient initially presented to the hospital with a chief complaint of chest discomfort. Patient states he has been having sharp pains in the middle of his chest. At the time of examination he denies any chest pain or pressure. Patient was found to be bradycardic with his heart rate going down to the 40s at times. He does report feeling lightheaded when this happens. He denies having any syncopal episodes. The patient does report occasional marijuana use. He states that he is trying to stop smoking marijuana. However he does report using marijuana yesterday before his symptoms started. DIAGNOSTICS: - EKG reveals sinus bradycardia with no signs of acute ischemia. - Chest xray negative for acute process. - Laboratory data: WBC 3.98. Hemoglobin 16.8. Platelet count 286. Sodium 139. Potassium 4.0. BUN 9. Creatinine 0.85. - Current home cardiac medications include none. - No previous echocardiogram, stress test, or cardiac catheterization available in EMR for review 01/18 Patient seen and examined on the observation unit. He states he is feeling good today. He has been on telemetry and heart rate went down to 38 but mostly running in the 40s. It is a sinus rhythm with a first-degree block. Blood pressure 127/71, pulse ox 100% on room air. Troponins are negative x 3. TSH 0.512. Echocardiogram reveals EF of 55 to 60%. Results of testing have been reviewed with the patient. 01/19/2025 Pt seen and examined sitting up in bed with spouse in the room. He denies dizziness but just feels weak and tired. Telemetry indicates ongoing bradycardia in the high 40s low 50s. he has no significant pauses noted. BP well controlled. We asked him to get up and walk the hallway at a brisk pace which he did and his heart rate went up into the 60s with activity. He admits to have sleep apnea and hasn't been using his CPAP due to moving frequently and needs a new machine. PHYSICAL EXAM: VITAL SIGNS: Reviewed. GENERAL: Well-developed in no acute distress. HEENT: Head is normocephalic. Pupils are equal, round. Sclerae anicteric. Mucous membranes of the mouth are moist. Neck supple. No JVD or thyromegaly LUNGS: Respirations even and unlabored. Lungs essentially clear to auscultation bilaterally. HEART: Regular rate and rhythm. S1 and S2 heard. ABDOMEN: Soft. Nondistended. Nontender. EXTREMITIES: Normal range of motion. No clubbing or cyanosis. Peripheral pulses intact. No lower extremity edema NEUROLOGIC: Awake and alert. Oriented x 3. ASSESSMENT: Chest pain, troponin negative x 1 Sinus bradycardia Presyncope Marijuana use Sleep apnea, poor CPAP compliance PLAN: Increase activity and ambulation. Ensure he is drinking at least 64 ounces of water daily. Follow up outpatient for sleep study and getting a new CPAP. He does not currently have PCP but will find one and follow through with this. Apply 30 day event monitor today and follow up with Dr. Torres for outpatient stress testing. Stable for discharge from a cardiac perspective. Nurse practitioner note has been reviewed by physician. Signing provider agrees with the documented findings, assessment, and plan of care documented by [employer] as a scribe. Objective - Vital Signs Vital signs: Vital Signs Temp 98.0 F 01/19/25 07:00 Pulse 54 L 01/19/25 08:00 Resp 16 01/19/25 07:00 BP 128/58 01/19/25 07:00 Pulse Ox 100 01/19/25 07:00 FiO2 Intake & Output 01/18/25 01/19/25 01/19/25 18:59 06:59 18:59 Other: # Voids 3 2 - Labs CBC & Chem 7: 01/18/25 05:07 01/18/25 05:07 Labs: Abnormal Lab Results - Last 24 Hours (Table) 01/17/25 Range/Units 09:53 HDL Cholesterol 60.60 H (40.00-60.00) mg/dL
--- NOTE | 2025-01-19 23:41 | P.PN ---
Subjective Progress Note Date: 01/19/25 This is a pleasant 24 years old male with no past medical history presents because of dizziness Patient states that yesterday he had some sensation in his chest like tightness rather than pain about 6/10 nonradiating with no precipitating or relieving factors Associated with dizziness as if he is about to pass out as he explains. Also he has mild headache like 4/10 in both temples but no shortness of breath or coughing. Patient also complains from shakiness in his left leg that lasted yesterday ab out 1 to 2 hours, he states he could not control it and he could not stop it. He denies any other GI/ symptom. He denies smoking alcohol but he uses marijuana Hemodynamically stable, heart rate in the 40s. Labs including CBC, BMP, LFT, troponin x 3 unremarkable with tumor less than 0.012. Urine drug screen was positive for marijuana. Chest x-ray is negative for acute process. EKG showing sinus bradycardia at [address] changes 01/18 Patient overall doing well with no chest pain or dyspnea No more shakiness or headache or dizziness His heart rate still bradycardic in the 50s dropped to 40s during sleep CBC and BMP today are unremarkable. Troponin were negative. TSH normal at 0.5. Orthostatic negative Echocardiogram pending Patient will require 30-day event monitor Neurology service also following the patient and EEG is pending 01/19/2025 Patient is seen in follow-up today with cardiology and neurology following. Patient did have an EEG and report is pending at this time. Cardiology recommending outpatient follow-up and 30-day event monitor to be placed. Patien t and family at bedside still having concerns of feeling dizzy and low heart rate. Will monitor overnight and encouraged to increase activity as tolerated and will follow-up with patient in a.m. Patient will need outpatient resources including primary care providers. Review of systems: Constitutional: No reports of fatigue, fever, or chills Cardiovascular: No reports of chest pain or palpitations Respiratory: No reports of shortness of breath or cough GI: No reports of nausea, vomiting, or diarrhea : No reports of dysuria or retention Neurovascular: reports of dizziness and mild lightheadedness All medications have been reviewed Physical exam: GENERAL: The patient is alert and oriented x3, not in any acute distress. Well developed, well nourished. Thin built HEENT: Pupils are round and equally reacting to light. EOMI. No scleral icterus. No conjunctival pallor. Normocephalic, atraumatic. No pharyngeal erythema. No thyromegaly. CARDIOVASCULAR: S1 and S2 muffled, bradycardic PULMONARY: Chest is clear to auscultation, no wheezing , no crackles. ABDOMEN: Soft, thin, nontender, nondistended, normoactive bowel sounds. No palpable organomegaly. MUSCULOSKELETAL: No joint swelling or deformity. EXTREMITIES: No cyanosis, clubbing, or pedal edema. NEUROLOGICAL: Gross neurological examination did not reveal any focal deficits. SKIN: No rashes. no petechiae. 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 Patient was evaluated by cardiology and no further plans at this time other than placing a 30-day event monitor and patient will follow-up outpatient Neurology following an EEG was ordered which is pending at this time. Patient has been instructed to refrain from any THC use and will need outpatient follow-up with a primary care provider to establish along with cardiology and neurology Follow-up on repeat labs and encouraged increase activity as tolerated with frequent walking in the halls plan on discharge in the next 24 hours The impression and plan of care has been dictated by Lucretia Landers, Nurse Practitioner as directed. Dr. Vu MD I have performed a history and examination and MDM of this patient, discussed the same with the dictator, and agree with the dictator's assessment and plan as written ,documented as a scribe. Based on total visit time, I have performed more than 50% of the visit. Objective - Vital Signs Vital signs: Vital Signs Temp 98.0 F 01/19/25 07:00 Pulse 54 L 01/19/25 08:00 Resp 16 01/19/25 07:00 BP 128/58 01/19/25 07:00 Pulse Ox 100 01/19/25 07:00 FiO2 Intake & Output 01/18/25 01/19/25 01/19/25 18:59 06:59 18:59 Other: # Voids 3 2 - Labs CBC & Chem 7: 01/18/25 05:07 01/18/25 05:07
[2025-01-20 08:17] VITALS: BP 121/69; TEMP 97.6
[2025-01-20 08:36] LABS: Blood Urea Nitrogen 11.8 mg/dL (9.0-27.0); Carbon Dioxide 23.8 mmol/L (21.6-31.8); Chloride 104 mmol/L (96-109); Glucose 86 mg/dL (70-110); Potassium 4.3 mmol/L (3.5-5.5); Sodium 138 mmol/L (135-145)
[2025-01-20 08:37] LABS: ALT 24 U/L (10-49); AST 25 U/L (14-35); Albumin 4.4 g/dL (3.8-4.9); Albumin/Globulin Ratio 1.76 Ratio (1.60-3.17); Alkaline Phosphatase 57 U/L (41-126); Calcium 9.3 mg/dL (8.7-10.3); Globulin 2.5 g/dL (1.6-3.3); Total Bilirubin 0.6 mg/dL (0.3-1.2); Total Protein 6.9 g/dL (6.2-8.2)
[2025-01-20 09:24] VITALS: PULSE 51
--- NOTE | 2025-01-20 11:41 | P.PN ---
Subjective HISTORY OF PRESENT ILLNESS: This is a 24-year-old male with a past medical history significant for marijuana use, anxiety, and depression. Patient does not follow with a fashion show director. We have been asked to see the patient in consultation for bradycardia. Patient examined at the bedside in the emergency room. Patient initially presented to the hospital with a chief complaint of chest discomfort. Patient states he has been having sharp pains in the middle of his chest. At the time of examination he denies any chest pain or pressure. Patient was found to be bradycardic with his heart rate going down to the 40s at times. He does report feeling lightheaded when this happens. He denies having any syncopal episodes. The patient does report occasional marijuana use. He states that he is trying to stop smoking marijuana. However he does report using marijuana yesterday before his symptoms started. DIAGNOSTICS: - EKG reveals sinus bradycardia with no signs of acute ischemia. - Chest xray negative for acute process. - Laboratory data: WBC 3.98. Hemoglobin 16.8. Platelet count 286. Sodium 139. Potassium 4.0. BUN 9. Creatinine 0.85. - Current home cardiac medications include none. - No previous echocardiogram, stress test, or cardiac catheterization available in EMR for review 01/18 Patient seen and examined on the observation unit. He states he is feeling good today. He has been on telemetry and heart rate went down to 38 but mostly running in the 40s. It is a sinus rhythm with a first-degree block. Blood pressure 127/71, pulse ox 100% on room air. Troponins are negative x 3. TSH 0.512. Echocardiogram reveals EF of 55 to 60%. Results of testing have been reviewed with the patient. 01/19/2025 Pt seen and examined sitting up in bed with spouse in the room. He denies dizziness but just feels weak and tired. Telemetry indicates ongoing bradycardia in the high 40s low 50s. he has no significant pauses noted. BP well controlled. We asked him to get up and walk the hallway at a brisk pace which he did and his heart rate went up into the 60s with activity. He admits to have sleep apnea and hasn't been using his CPAP due to moving frequently and needs a new machine. 01/20/2025 Patient examined this morning to bedside. Patient currently denies chest pain or pressure. He denies shortness of breath. Telemetry reveals sinus bradycardia with a heart rate in the 50s. No significant pauses noted on tele metry. Patient without any episodes of syncope. He has been up ambulating independently in the room. PHYSICAL EXAM: VITAL SIGNS: Reviewed. GENERAL: Well-developed in no acute distress. NECK: Supple. No JVD or thyromegaly LUNGS: Respirations even and unlabored. Lungs essentially clear to auscultation bilaterally. HEART: Regular rate and rhythm. S1 and S2 heard. EXTREMITIES: Normal range of motion. No clubbing or cyanosis. Peripheral pulses intact. No lower extremity edema ASSESSMENT: Chest pain, ACS ruled out Sinus bradycardia Presyncope Marijuana use Sleep apnea, poor CPAP compliance PLAN: Dr. Hand discussed plan of care with patient and his significant other at the bedside. Explained that workup thus far has been unremarkable. Patient did receive a 30-day event monitor yesterday. Explained that patient was stable for discharge today from a cardiac standpoint and then will have patient follow-up in the office for further evaluation. Patient and his significant other both became very angry and belligerent. Both began yelling at Dr. Hand demanding an explanation as to why the patient's heart rate is low. Patient significant other threw a notebook and a pencil across the room hitting the sink in the room. Patient continued to yell at Dr. Hand and speak over him and yelled "Stop talking to me. I do not want to hear another word out of your mouth". Patient then began demanding to be transferred to [facility] and stated "when they find out what is wrong with me I am going to marjorie the shit out of you". Patient and his significant other continue to be belligerent and consistently using foul language towards Dr. Hand. Patients signficant other accused Dr. Hand of ignoring patients symptoms due to him being young and stated he was not doing anything for him just because of his age. Dr. Hand explained that was not the case. Patient's nurse, Yuliana, and nurse practitioner also witnessed patient and significant other's behavior. Additionally, other staff members came down the hallway to the patient's room to ensure everything was okay as patient and his significant other were yelling so loud other staff members were concerned. Patients significant other began packing up all their belongings and stated they were leaving the hospital immediately and asked to be discharged. Nurse practitioner note has been reviewed by physician. Signing provider agrees with the documented findings, assessment, and plan of care documented by AD WRITER as a scribe. Objective - Vital Signs Vital signs: Vital Signs Temp 97.6 F 01/20/25 07:00 Pulse 51 L 01/20/25 08:00 Resp 16 01/20/25 07:00 BP 121/69 01/20/25 07:00 Pulse Ox 100 01/20/25 07:00 FiO2 Intake & Output 01/19/25 01/20/25 01/20/25 18:59 06:59 18:59 Intake Total 600 Balance 600 Intake: Oral 600 Other: Voiding Method Urinal # Voids 1 3 - Labs CBC & Chem 7: 01/18/25 05:07 01/20/25 04:08 Labs: Abnormal Lab Results - Last 24 Hours (Table) 01/20/25 Range/Units 04:08 BUN/Creatinine Ratio 11.80 L (12.00-20.00) Ratio
--- NOTE | 2025-01-21 16:37 | EEG ---
ELECTROENCEPHALOGRAM REPORT CLINICAL HISTORY: This is a 24-year-old gentleman with near syncope. The video EEG is obtained to evaluate for seizure epileptiform activity. RELEVANT MEDICATION: The patient is not on any antiseizure medication. EEG TYPE: Routine 21-channel EEG with video using the 10/20 electrode placement system. DESCRIPTION: Wakefulness is only obtained. During awake state, posterior-dominant rhythm consists of [id number] voltage of 10 hertz activity that is well modulated and well sustained. There is no physiological stage 2 sleep architecture. There is no focal slowing. Interictal and ictal are none. ACTIVATION PROCEDURE: Photic stimulation did not evoke a posterior driving response. There is no abnormality during the photic stimulation. Hyperventilation is not performed. CLINICAL INTERPRETATION: This is a normal routine EEG during awake state. There is no focal slowing, epileptiform discharge, or seizure on the EEG. A normal routine EEG does not rule underlying epilepsy. Clinical correlation is recommended. ROBERT / LEVI: [id number] /
== END 2025-01-20 09:15 | disposition home or self-care (01) ==
LOC: EC 09:02 → 6NMEDSUR 11:35
PROVIDERS: ADMIT Internal Medicine; ATTEND Internal Medicine
DX: R07.89 Other chest pain (principal); R55 Syncope and collapse; R00.1 Bradycardia, unspecified; R42 Dizziness and giddiness; R25.8 Other abnormal involuntary movements; G47.30 Sleep apnea, unspecified; M30.3 Mucocutaneous lymph node syndrome [Kawasaki]; F12.10 Cannabis abuse, uncomplicated; F17.290 Nicotine dependence, other tobacco product, uncomplicated; Z91.199 Patient's noncompliance with other medical treatment and regimen due to unspecified reason; Z88.6 Allergy status to analgesic agent
CPT/HCPCS: 99285; 36415; 95816; 93005; 93306; 93270; 80061; 80053 ×2; 80048; 84443; 84484; 85025 ×2; 80306; 71046; G0378 ×4